=== PATIENT | female | born 1940 | race Caucasian/White ===

== ENCOUNTER 2024-09-25 12:16 | Emergency (ER) | payer BC, SELFPAY ==
[2024-09-25 12:28] VITALS: BP 155/61
--- NOTE | 2024-09-25 13:58 | ED.GENMED ---
History of Present Illness
General
Chief Complaint: Abdominal Symptoms
Time Seen by Provider: 09/25/24 13:07
History of Present Illness
History of Present Illness:
84-year-old female with history of diabetes presents the emergency department for evaluation of generalized abdominal discomfort, loose stools, and nausea ongoing for the past month. She states that she started metformin just prior to the onset of
the symptoms. Has had a hard time eating secondary to symptoms. Symptoms seem to wax and wane throughout the day. No fevers or night sweats
Past History
Past History
ED Past Medical History: Cancer (Uterine cancer)
ED Past Surgical History: Gynecological (Hysterectomy) and Orthopedic (knee surgery)
Social History
Tobacco: Non-smoker
Alcohol: None
Drug: None
Personal:
Living: with family
Employment: Retired
Review of Systems
Review of Systems
Allergies reviewed?: Yes
All Other Systems: ROS reviewed and negative except as documented in HPI and ROS
Phy Exam
Physical Exam
Physical Exam:
GEN: Well appearing, NAD, WDWN
HEENT: Oral mucosa moist, no scleral icterus
Cardiac: Regular rate
Lung: No respiratory distress, no tachypnea
Abdomen: Soft, grossly nontender
MSK: No gross deformity or injuries
Skin: Good color, no pallor or jaundice, no rashes
Neuro: AO x3, moves all extremities freely
Psych: Calm, cooperative
Course
Orders/Labs/Results
Orders:
Orders
09/25/24 14:13
Comprehensive Metabolic Panel Urgent
Hemoglobin A1c [Glycohemoglobin (HgbA1c)] Urgent
Abnormal Lab Results
09/25/24
14:13
Carbon Dioxide 21 L mmol/L
(22-30)
Glucose 143 H mg/dl
(70-99)
Total Bilirubin 1.5 H mg/dl
(0.2-1.3)
AST 75 H U/L
(14-36)
ALT 82 H U/L
(0-35)
Alkaline Phosphatase 284 H U/L
(38-126)
09/25/24 14:13
Vital Signs
Initial and Last Documented VS:
Initial Vital Signs
Temp Pulse Resp BP Pulse Ox
98.1 F 72 20 155/61 97
09/25/24 12:28 09/25/24 12:28 09/25/24 12:28 09/25/24 12:28 09/25/24 12:28
Last Documented Vital Signs
Temp Pulse Resp BP Pulse Ox
98.1 F 72 20 155/61 97
09/25/24 12:28 09/25/24 12:28 09/25/24 12:28 09/25/24 12:28 09/25/24 12:28
MDM/Problems Addressed
MDM/Problems Addressed:
Exam is benign, mild transaminitis noted on labs consistent with adverse effect of metformin. Advised to discontinue metformin, recommend she discuss alternative therapies with her primary care physician. Hemoglobin A1c sent for follow-up purposes
only
*Critical Care Note
Total Time (30-74mins, 75-104mins- exclusive of procedures): Not Applicable
ED Attending Note
-
Portions of this chart may have been created with voice recognition software.� Occasional wrong word or��sound alike� substitutions may have occurred due to the inherent limitations of voice recognition software.
Discharge Plan
Departure
Patient Disposition: Home (Routine Discharge)
Date of Disposition: 09/25/24
Time of Disposition: 15:25
Patient with high blood pressure during this ER visit?: No
Discharge Problem:
Transaminitis, Metformin adverse reaction
Prescriptions:
New
ondansetron 4 mg tablet,disintegrating
4 mg PO TIDPRN PRN (Reason: nausea/vomiting) Qty: 10 0RF
No Action
acetaminophen [Tylenol Extra Strength] 500 MG tablet
500 mg PO Q4HPRN PRN (Reason: mild pain)
aspirin 81 MG tablet,chewable
81 mg PO DAILY Qty: 30 0RF
Referrals:
Eddie Ramos PA [Family Provider] -
Activity Restrictions/Additional Instructions:
Stop your metformin
Discuss an alternative medication therapy with your primary doctor
Symptoms should improve in 1 week
Your liver enzymes should be rechecked in 1-2 weeks
Your A1C should result tomorrow morning; your primary doctor can review this
Interventions
Interventions:
*Risk Screen - Suicide Last Done: 09/25/24 12:37
*General Assessment Last Done: 09/25/24 12:35
*Neglect/Abuse Screening Last Done: 09/25/24 12:35
*ED- Fall Risk Assessment Last Done: 09/25/24 12:35
*ED COVID-19 Vaccine History Last Done: 09/25/24 12:35
NZ-Dwlzgv-Mhmvjkvenz Assessment Last Done: 09/25/24 12:36
Discharge Date and Time
Print Language: KAZAKH
[2024-09-25 14:46] LABS: ALT (SGPT) 82 U/L (0-35); AST (SGOT) 75 U/L (14-36); Albumin 3.5 g/dl (3.5-5.0); Alkaline Phosphatase 284 U/L (38-126); Blood Urea Nitrogen 16 mg/dl (7-17); Calcium 9.3 mg/dl (8.4-10.2); Carbon Dioxide 21 mmol/L (22-30); Chloride 107 mmol/L (98-107); Glucose 143 mg/dl (70-99); Potassium 4.1 mmol/L (3.5-5.1); Sodium 136 mmol/L (135-145); Total Bilirubin 1.5 mg/dl (0.2-1.3); Total Protein 6.6 g/dl (6.3-8.2); eGFR > 60.00
== END 2024-09-25 15:51 | disposition home or self-care (01) ==
LOC: EMR 12:16
PROVIDERS: Physician Assistant; EMERGENCY PHYSICIAN Emergency Medicine; FAMILY PHYSICIAN Physician Assistant
DX: R74.01 Elevation of levels of liver transaminase levels (principal); R10.84 Generalized abdominal pain; T38.3X5A Adverse effect of insulin and oral hypoglycemic [antidiabetic] drugs, initial encounter; Y92.9 Unspecified place or not applicable; E11.9 Type 2 diabetes mellitus without complications; R19.7 Diarrhea, unspecified; Z85.42 Personal history of malignant neoplasm of other parts of uterus; Z90.710 Acquired absence of both cervix and uterus
CPT/HCPCS: 99283; 80053; 83036

== ENCOUNTER 2024-10-09 08:19 | Emergency (ER) | payer BC, SELFPAY ==
[2024-10-09 08:25] VITALS: BP 144/76
[2024-10-09 08:39] VITALS: BP 136/87; BP 142/69; BMI 33.0
[2024-10-09] MEDS: PEPCID 20 MG IV (08:45)
[2024-10-09] MEDS: ZOFRAN 4 MG IV (08:46)
[2024-10-09] MEDS: NSS 500 IV (08:49)
[2024-10-09] MEDS: BENTYL 20 MG IM (08:49)
[2024-10-09 08:54] LABS: % Basophils 0.9 % (0-2); % Eosinophils 1.2 % (0-6); % Immature Granulocytes 0.3 % (0-0.5); % Lymphocytes 11.4 % (20.5-51.1); % Monocytes 9.4 % (1.7-9.3); % Neutrophils 76.8 % (42.2-75.2); Absolute Basophils 0.1 10^3/uL (0-0.2); Absolute Eosinophils 0.1 10^3/uL (0-0.7); Absolute Lymphocytes 0.8 10^3/uL (1.2-3.4); Absolute Monocytes 0.7 10^3/uL (0.1-0.6); Absolute Neutrophils 5.4 10^3/uL (1.4-6.5); Hematocrit 37.3 % (37.0-47.0); Hemoglobin 12.6 g/dL (12.0-16.0); Mean Corp Hgb Conc. 33.8 g/dL (33.0-37.0); Mean Corpuscular Hgb 31.1 pg (27.0-31.0); Mean Corpuscular Volume 92.1 fL (81.0-99.0); Mean Platelet Volume 10.1 fL (7.4-10.4); Nucleated Red Blood Cells % 0 %; Platelet Count 151 10^3/uL (130-400); Red Blood Cell Count 4.05 10^6/uL (4.20-5.40); Red Cell Dist. Width 12.9 % (11.5-14.5)
[2024-10-09 09:00] VITALS: BP 150/60
[2024-10-09 09:18] LABS: ALT (SGPT) 74 U/L (0-35); AST (SGOT) 92 U/L (14-36); Albumin 3.4 g/dl (3.5-5.0); Alkaline Phosphatase 385 U/L (38-126); Blood Urea Nitrogen 18 mg/dl (7-17); Carbon Dioxide 20 mmol/L (22-30); Chloride 104 mmol/L (98-107); Estimated Creatinine Clearance 43 ml/min; Glucose 185 mg/dl (70-99); Lipase 72 U/L (23-300); Potassium 4.1 mmol/L (3.5-5.1); Sodium 135 mmol/L (135-145); Total Protein 6.8 g/dl (6.3-8.2); eGFR 55.55
[2024-10-09 09:58] LABS: Urine Albumin 2+ (Neg - Trace); Urine Bilirubin Negative (Negative); Urine Character Cloudy (Clear); Urine Color Yellow; Urine Glucose Negative (Negative); Urine Ketone 1+ (Negative); Urine Leukocyte Negative (Negative); Urine Nitrite Negative (Negative); Urine Occult Blood 1+ (Negative); Urine Specific Gravity 1.025 (<1.030); Urine Urobilinogen 1+ (Neg - 1+)
--- NOTE | 2024-10-09 10:30 | ED.GENMED ---
History of Present Illness
General
Chief Complaint: Abdominal Pain
Source: patient
Exam Limitations: none
Time Seen by Provider: 10/09/24 08:32
Nursing documentation reviewed up to this point in time: agreed with
History of Present Illness
History of Present Illness:
84-year-old female with past medical history of hypertension presenting to the emergency department today with concerns of abdominal pain nausea over the past 2 weeks. Initially this was presumed to be secondary to the metformin that she started
just prior but claims that the symptoms have been ongoing. She saw her primary care doctor and was told to get an ultrasound. She claims that the pain is diffuse with associated nausea no vomiting no significant changes in bowel movements. No
chest pain shortness of breath. No fevers.
Past History
Past History
ED Past Medical History: Cancer (Uterine cancer)
ED Past Surgical History: Gynecological (Hysterectomy) and Orthopedic (knee surgery)
Social History
Tobacco: Non-smoker
Alcohol: None
Drug: None
Personal:
Living: with family
Employment: Retired
Review of Systems
Review of Systems
Allergies reviewed?: Yes
All Other Systems: ROS reviewed and negative except as documented in HPI and ROS
Phy Exam
Physical Exam
Physical Exam:
GENERAL: Alert , in no apparent distress
EYE: pupils equal and reactive
NECK: Supple, no significant adenopathy.
ENT: o/p clr, mmm.
CARDIAC: Regular rate and rhythm .
LUNGS: Clear breath sounds bilaterally, no acute respiratory distress, no wheezes/rales/rhonchi
ABDOMEN: Soft, without focal tenderness, no r/g, no cvat
NEUROLOGICAL: Alert and oriented, no focal neuro deficits
SKIN: Warm and dry, skin intact.
MUSCULOSKELETAL: No edema, well perfused.
PSYCH: Normal and appropriate interaction.
Course
Orders/Labs/Results
Orders:
Orders
10/09/24 08:42
CT Abd/Pel (IV only)-DH only Urgent
Comment:
Reason For Exam: diffuse abd pain
CA 19-9 [S] Urgent
Complete Blood Count/With Diff Urgent
Comprehensive Metabolic Panel Urgent
Lipase Urgent
Dicyclomine HCl [Bentyl] 20 mg IM NOW STA
Famotidine [Pepcid] 20 mg IV NOW STA
Ondansetron Injectable [Zofran] 4 mg IV NOW STA
10/09/24 08:43
0.9% Sodium Chloride 500 ml [Nss] 500 ml IV BOLUS
10/09/24 09:31
Urinalysis Reflex To Culture Urgent
Date Specimen was Collected: 10/09/24
Time Specimen was Collected: 08:44
Urine Microscopic Reflex Cult Urgent
10/09/24 11:55
Add On- LAB Urgent
Tests Added?: CA 19-9
Abnormal Lab Results
10/09/24 10/09/24
08:42 09:31
RBC 4.05 L 10^6/uL
(4.20-5.40)
MCH 31.1 H pg
(27.0-31.0)
Absolute Lymphs (auto) 0.8 L 10^3/uL
(1.2-3.4)
Absolute Monos (auto) 0.7 H 10^3/uL
(0.1-0.6)
Neutrophils % 76.8 H %
(42.2-75.2)
Lymphocytes % 11.4 L %
(20.5-51.1)
Monocytes % 9.4 H %
(1.7-9.3)
Carbon Dioxide 20 L mmol/L
(22-30)
BUN 18 H mg/dl
(7-17)
Glucose 185 H mg/dl
(70-99)
Total Bilirubin 2.0 H mg/dl
(0.2-1.3)
AST 92 H U/L
(14-36)
ALT 74 H U/L
(0-35)
Alkaline Phosphatase 385 H U/L
(38-126)
Albumin 3.4 L g/dl
(3.5-5.0)
Urine Ketones 1+ A
(Negative)
Ur Occult Blood Reflex 1+ A
(Negative)
Urine Bacteria (Reflex) Few A
(Negative)
Urine Albumin (Reflex) 2+ A
(Neg - Trace)
10/09/24 08:42
10/09/24 08:42
Vital Signs
Initial and Last Documented VS:
Initial Vital Signs
Temp Pulse Resp BP Pulse Ox
98.4 F 104 18 144/76 99
10/09/24 08:25 10/09/24 08:25 10/09/24 08:25 10/09/24 08:25 10/09/24 08:25
Last Documented Vital Signs
Temp Pulse Resp BP Pulse Ox
97.6 F 82 16 150/60 96
10/09/24 08:39 10/09/24 08:39 10/09/24 08:39 10/09/24 09:00 10/09/24 09:15
MDM/Problems Addressed
MDM/Problems Addressed:
84-year-old female presenting to the emergency department today with concerns of ongoing diffuse abdominal pain associated nausea no vomiting. Initially mildly tachycardic but improving without specific treatment. Mildly elevated blood pressure
otherwise vital signs are normal. Afebrile no significant white count. Elevated alk phos and LFTs bilirubin 2.0. Considering her ongoing discomfort plan for CT scan for further assessment. CT scan showing concerning findings for possible
pancreatic adenocarcinoma with local spread and metastasis to the liver. There is surrounding adenopathy as well. Case was discussed with oncology that recommends close outpatient follow-up. Otherwise at this point patient stable for discharge
able to tolerate by mouth without significant pain at this point. Return precautions given.
*Critical Care Note
Total Time (30-74mins, 75-104mins- exclusive of procedures): Not Applicable
ED Attending Note
-
Portions of this chart may have been created with voice recognition software.� Occasional wrong word or��sound alike� substitutions may have occurred due to the inherent limitations of voice recognition software.
Discharge Plan
Departure
Patient Disposition: Home (Routine Discharge)
Date of Disposition: 10/09/24
Time of Disposition: 12:21
Patient with high blood pressure during this ER visit?: No
Condition: Good
Covid-19: Not Applicable
Discharge Problem:
Mass of pancreas, Liver masses
Instructions: Pancreatic Cancer (DC)
Prescriptions:
New
dicyclomine 20 mg tablet
20 mg PO QID PRN (Reason: abdominal pain) Qty: 14 0RF
ondansetron 4 mg tablet,disintegrating
4 mg PO Q6H PRN (Reason: nausea and vomiting) Qty: 7 0RF
famotidine 20 mg tablet
20 mg PO BID Qty: 10 0RF
No Action
acetaminophen [Tylenol Extra Strength] 500 MG tablet
500 mg PO Q4HPRN PRN (Reason: mild pain)
aspirin 81 MG tablet,chewable
81 mg PO DAILY Qty: 30 0RF
ondansetron 4 mg tablet,disintegrating
4 mg PO TIDPRN PRN (Reason: nausea/vomiting) Qty: 10 0RF
Referrals:
Fabian Moe, [Active] - Follow up in 5-7 days
Eddie Ramos PA [Family Provider] -
Activity Restrictions/Additional Instructions:
You came to the emergency department today with concerns of abdominal pain. You are found on CT to have masses of your pancreas and liver. You will need to follow-up very closely with the oncologist. Please call to make an appointment as soon as
possible. Return for any worsening, new or concerning symptoms.
Interventions
Interventions:
*Risk Screen - Suicide Last Done: 10/09/24 08:29
*General Assessment Last Done: 10/09/24 08:29
*Neglect/Abuse Screening Last Done: 10/09/24 08:29
*ED- Fall Risk Assessment Last Done: 10/09/24 08:39
*ED COVID-19 Vaccine History Last Done: 10/09/24 08:39
BS-Kozhdh-Dchzrwoczo Assessment Last Done: 10/09/24 08:39
Discharge Date and Time
Print Language: SLOVAK
[2024-10-09 10:34] LABS: Urine Bacteria Few (Negative); Urine Red Blood Cell 0-2 /HPF (0-2); Urine Squamous Cell >30 /LPF (Few)
--- NOTE | 2024-10-09 10:40 | EDRN ---
the pts approached this RN at the nurses station and asked this RN if the pt could eat or drink yet and per Nacho WATTERS the pt cannot eat or drink yet
--- NOTE | 2024-10-09 11:23 | EDRN ---
the pts approached this RN at the nurses station and stated, 'My is nauseous and she wants something to eat', this RN notified Ed Kenny WATTERS
== END 2024-10-09 12:43 | disposition home or self-care (01) ==
LOC: EMR 08:19
PROVIDERS: Physician Assistant; EMERGENCY PHYSICIAN Emergency Medicine; FAMILY PHYSICIAN Physician Assistant
DX: K86.9 Disease of pancreas, unspecified (principal); R16.0 Hepatomegaly, not elsewhere classified; I10 Essential (primary) hypertension; R18.8 Other ascites; Z85.42 Personal history of malignant neoplasm of other parts of uterus; Z90.710 Acquired absence of both cervix and uterus
CPT/HCPCS: 99284; 96374; 96375; 96372; 96361; 74177; 80053; 81003; 81015; 83690; 85025; 86301; Q9967

== ENCOUNTER 2024-10-14 13:38 | Observation (INO) | payer OTHER, SELFPAY ==
[2024-10-14] VITALS (7 sets, daily range): BP systolic 125–186; BP diastolic 44–104; BMI 32.1; BMI 32.5
--- NOTE | 2024-10-14 09:15 | ED.GENMED ---
History of Present Illness
General
Chief Complaint: Abdominal Pain
Source: patient and records
Exam Limitations: none
Time Seen by Provider: 10/14/24 08:53
Nursing documentation reviewed up to this point in time: agreed with
History of Present Illness
History of Present Illness:
84-year-old female with past medical history of diabetes, hypertension, suspected metastatic pancreatic cancer presents to the emergency room for evaluation of abdominal pain and nausea. This is patient's third emergency room visit in the past
month for the symptoms; initially was seen early September with nausea and abdominal discomfort and it was thought to be related to recently started metformin; metformin was discontinued but symptoms did not improve and so she returned 10/09/2024 at that
time she had a CT that showed findings concerning for pancreatic adenocarcinoma with metastatic lesions in the liver. She was discharged in consultation with oncology with plan for close outpatient follow-up. She has an appointment scheduled
tomorrow with Dr. Oconnor to establish care.
Patient returns to the emergency room today for evaluation of continued abdominal pain and severe nausea. She reports that her abdominal pain has been intermittent. Located upper abdomen somewhat worse on the right and epigastrium. No clear
triggering or relieving factors noted. She describes it as 'an intense stomachache.' She reports intense and distressing associated nausea. Has not had any dry heaving or vomiting. She says she has very poor appetite. She has been taking Zofran
but feels that it does not adequately control her symptoms. She has not been eating very much. She reports mild constipation and took a stool softener for this today. She denies any fevers or chills. She denies any respiratory issues. Denies
any other complaints.
Past History
Past History
ED Past Medical History: Cancer (Uterine cancer)
ED Past Surgical History: Gynecological (Hysterectomy) and Orthopedic (knee surgery)
Social History
Tobacco: Non-smoker
Alcohol: None
Drug: None
Personal:
Living: with family
Employment: Retired
Review of Systems
Review of Systems
All Other Systems: ROS reviewed and negative except as documented in HPI and ROS
Constitutional: Denies fever or chills
Respiratory: Denies cough or trouble breathing
Cardiac: Denies chest pain
ABD/GI: Reports abdominal pain, nausea, vomiting and constipated; Denies diarrhea
: Denies dysuria or flank pain
Musculoskeletal: Denies neck pain or back pain
Neurological: Denies headache
Phy Exam
Physical Exam
Physical Exam:
General: Awake, alert, oriented x3; no acute distress
Head: Normocephalic, atraumatic
Eyes: Conjunctiva normal, sclera anicteric
Throat: Airway intact, handling secretions
Neck: Trachea midline, supple without meningismus
Lungs: Clear to auscultation bilaterally, no wheezing, rales, rhonchi
Heart: Tachycardia with regular rhythm, no murmurs, gallops, or rubs
Abd: Soft, non distended, tender across the upper abdomen
Back: No CVA tenderness
Neuro: No gross deficits
Skin: No jaundice, no rash
Extremities: Warm and well-perfused
Scores
Heart Failure Risk
Heart Failure Risk Score: Not Applicable
Heart Score for Chest Pain Patients
STEMI patient?: Not applicable
Withdrawal Assessment of Alcohol
Withdrawal Assessment Completed?: Not applicable
Course
Orders/Labs/Results
Orders:
Orders
10/14/24 08:53
Electrocardiogram (*1) Urgent
Reason for Study: Abdominal Pain
EKG- Treatment ONCE
10/14/24 09:14
0.9% Sodium Chloride 1000 ml [Nss] 1,000 ml IV BOLUS
Diphenhydramine [Benadryl] 25 mg IV NOW STA
Metoclopramide [Reglan] 10 mg IV NOW STA
10/14/24 09:16
Morphine Sulfate 4 mg IV NOW STA
10/14/24 09:26
Complete Blood Count/With Diff Urgent
10/14/24 09:55
Diphenhydramine [Benadryl] 25 mg IV NOW STA
10/14/24 09:56
Lorazepam [Ativan] 0.5 mg IV NOW STA
10/14/24 10:22
Basic Metabolic Panel Urgent
Lipase Urgent
Abnormal Lab Results
10/14/24 10/14/24
09:26 10:22
RBC 3.96 L 10^6/uL
(4.20-5.40)
MCH 31.3 H pg
(27.0-31.0)
Absolute Lymphs (auto) 0.6 L 10^3/uL
(1.2-3.4)
Absolute Monos (auto) 0.7 H 10^3/uL
(0.1-0.6)
Neutrophils % 81.7 H %
(42.2-75.2)
Lymphocytes % 7.5 L %
(20.5-51.1)
BUN 18 H mg/dl
(7-17)
Glucose 153 H mg/dl
(70-99)
10/14/24 09:26
10/14/24 10:22
Vital Signs
Initial and Last Documented VS:
Initial Vital Signs
Temp Pulse Resp BP Pulse Ox
36.8 C 103 15 130/104 96
10/14/24 08:52 10/14/24 08:52 10/14/24 08:52 10/14/24 08:52 10/14/24 08:52
Last Documented Vital Signs
Temp Pulse Resp BP Pulse Ox
36.8 C 90 23 125/44 92
10/14/24 08:52 10/14/24 12:00 10/14/24 12:00 10/14/24 11:00 10/14/24 12:00
MDM/Problems Addressed
Differential Diagnosis Includes:
Cancer related pain, biliary obstruction
MDM/Problems Addressed:
84-year-old female recently diagnosed with pancreatic mass (concerning for pancreatic adenocarcinoma) and presumed metastatic lesions in the liver returns to the emergency room after the third time complaining of poorly controlled abdominal pain and
nausea. Mildly hypertensive and tachycardic but otherwise normal vitals here. Physical exam as above. Suspect symptoms are likely related to known recently diagnosed pancreatic mass and liver lesions. Will plan to place an IV check labs
including a CBC and a CMP, lipase. Check an EKG for QTc monitoring. Treat with Reglan/Benadryl, morphine, fluids. Reassess after the above. Hold off on repeat CT scan at this point as symptoms have not significantly changed but rather are poorly
controlled and she had a CT scan 5 days ago.
Labs reviewed: CBC unremarkable, CMP no clinically significant abnormalities although LFTs hemolyzed and so we will need to resend. I had a long discussion with the patient and her who is now at bedside. I explained that her symptoms are
likely from her recently diagnosed cancer; she feels her symptoms are very poorly controlled. I explained that hospitalization would not necessarily fix underlying problem and would not provide much more in the way of diagnostics however she feels
that she would benefit from admission for symptom control. Given that this is her third ER visit I do not think this is unreasonable. Case discussed with hospitalist for admission.
*Radiology
Radiology exam reviewed: radiology read reviewed (Reviewed prior CT report)
*Pulse Oximetry
Patient hypoxic: no
*EKG
Interpreted by ED Provider?: Yes
Comparison EKG: changes noted
Heart Rate: 97
Rate: normal
Rhythm: sinus
[place]: left axis deviation
Interval: normal interval
QRS Pattern: low voltage
Ischemia: other (Nonspecific ST changes and T wave flattening when compared to prior)
*Critical Care Note
Total Time (30-74mins, 75-104mins- exclusive of procedures): Not Applicable
Data Reviewed
Review of Other/Old Records Reveals: Labs, Records and Radiology Studies
Source: patient and records
Patient Management
Discussion with other providers: Hospitalist (Discussed with hospitalist)
Escalation/DeEscalation of care consider admission/obs:
Admission indicated
ED Attending Note
-
Portions of this chart may have been created with voice recognition software.� Occasional wrong word or��sound alike� substitutions may have occurred due to the inherent limitations of voice recognition software.
Discharge Plan
Departure
Patient Disposition: Admit
Date of Disposition: 10/14/24
Time of Disposition: 12:44
Admit to doctor: Nash
Presentation/result/management discussed w/ accepting MD/DO: Hospitalist
Discharge Problem:
Nausea & vomiting, Dehydration, Pancreatic cancer
Prescriptions:
No Action
acetaminophen [Tylenol Extra Strength] 500 MG tablet
500 mg PO Q4HPRN PRN (Reason: mild pain)
aspirin 81 MG tablet,chewable
81 mg PO DAILY Qty: 30 0RF
ondansetron 4 mg tablet,disintegrating
4 mg PO TIDPRN PRN (Reason: nausea/vomiting) Qty: 10 0RF
dicyclomine 20 mg tablet
20 mg PO QID PRN (Reason: abdominal pain) Qty: 14 0RF
ondansetron 4 mg tablet,disintegrating
4 mg PO Q6H PRN (Reason: nausea and vomiting) Qty: 7 0RF
famotidine 20 mg tablet
20 mg PO BID Qty: 10 0RF
Referrals:
Eddie Ramos PA [Family Provider] -
Interventions
Interventions:
*Risk Screen - Suicide Last Done: 10/14/24 08:52
*General Assessment Last Done: 10/14/24 08:52
*Neglect/Abuse Screening Last Done: 10/14/24 08:52
*ED- Fall Risk Assessment Last Done: 10/14/24 08:52
*ED COVID-19 Vaccine History Last Done: 10/14/24 08:52
OH-Ejfhyt-Ooxpaedklr Assessment Last Done: 10/14/24 09:56
Discharge Date and Time
Print Language: KUWAITI
[2024-10-14] MEDS: NSS 1000 IV ×2 (09:30→16:45)
[2024-10-14] MEDS: BENADRYL 25 MG IV (09:35)
[2024-10-14] MEDS: REGLAN 10 MG IV ×2 (09:35→21:42)
[2024-10-14 09:42] LABS: % Basophils 0.6 % (0-2); % Eosinophils 0.8 % (0-6); % Immature Granulocytes 0.4 % (0-0.5); % Lymphocytes 7.5 % (20.5-51.1); % Neutrophils 81.7 % (42.2-75.2); Absolute Basophils 0.1 10^3/uL (0-0.2); Absolute Eosinophils 0.1 10^3/uL (0-0.7); Absolute Lymphocytes 0.6 10^3/uL (1.2-3.4); Absolute Monocytes 0.7 10^3/uL (0.1-0.6); Absolute Neutrophils 6.4 10^3/uL (1.4-6.5); Hematocrit 37.6 % (37.0-47.0); Hemoglobin 12.4 g/dL (12.0-16.0); Mean Corpuscular Hgb 31.3 pg (27.0-31.0); Mean Corpuscular Volume 94.9 fL (81.0-99.0); Nucleated Red Blood Cells % 0 %; Platelet Count 146 10^3/uL (130-400); Red Blood Cell Count 3.96 10^6/uL (4.20-5.40); Red Cell Dist. Width 12.9 % (11.5-14.5); White Blood Cell Count 7.9 10^3/uL (4.8-10.8)
[2024-10-14] MEDS: ATIVAN 0.5 MG IV (09:59)
[2024-10-14 10:44] LABS: Blood Urea Nitrogen 18 mg/dl (7-17); Calcium 8.8 mg/dl (8.4-10.2); Carbon Dioxide 22 mmol/L (22-30); Chloride 105 mmol/L (98-107); Estimated Creatinine Clearance 44 ml/min; Glucose 153 mg/dl (70-99); Lipase 56 U/L (23-300); Sodium 137 mmol/L (135-145); eGFR 55.55
--- NOTE | 2024-10-14 13:02 | HPS.HSE ---
Family Physician
-
Family Physician: JANENE Negro
Chief Complaint
-
abdominal pain
History of Present Illness
84-year-old female past medical history of diabetes, hypertension, metastatic pancreatic cancer presents for abdominal pain and nausea. This is her third emergency room visit in the past month for the same symptoms. She was seen in early September
with nausea and abdominal discomfort thought to be secondary to recently started metformin. Metformin was stopped but symptoms did not improved so she returned on 10/09 at which time she had a CAT scan which showed pancreatic adenocarcinoma with
metastatic lesions in the liver. She is discharged and recommend to follow-up with oncology. [facility]
Patient returns again for continued abdominal pain and severe nausea. Abdominal pain has been intermittent and located in the upper abdomen worse on the right and epigastrium. No relieving factors or triggering factors. Denies vomiting or dry
heaving. She has poor appetite. Zofran adequate. She has been constipated and took a stool softener for this today. Denies fevers or chills. Denies shortness of breath.
Denies alcohol or smoking.
Medical History
Past Medical History
Past Medical History: Reports Other (diabetes, hypertension, metastatic pancreatic cancer)
Past Surgical History: Reports None
Social History
Tobacco: Non-smoker
Alcohol: None
Drug: None
Family History
Family History: Not pertinent
Allergies / Home Medications
Allergies reflects when Allergies were last updated in [employer].
Home Medications with original date entered in [employer]
Allergy/Medication List:
Allergies
Allergy/AdvReac Type Severity Reaction Status Date / Time
No Known Allergies Allergy Verified 10/09/24 08:25
Home Medications
ondansetron 4 mg disintegrating tablet 4 mg PO TIDPRN PRN nausea/vomiting #10 tabs 09/25/24
aluminum-mag hydroxide-simethicone 200 mg-200 mg-20 mg/5 mL oral susp 5 ml PO DAILYPRN PRN UPSET STOMACH 10/14/24
ibuprofen 200 mg tablet 200 mg PO Q6H PRN MILD PAIN 10/14/24
lisinopril 10 mg tablet 10 mg PO HS Blood Pressure 10/14/24
Review of Systems
-
History Source: Patient
A 12 point ROS was completed and negative except as noted: Yes
Constitutional: Reports No Symptoms
EENT: Reports No Symptoms
Respiratory: Reports No Symptoms
Cardiac: Reports No Symptoms
Abdomen/GI: Reports See HPI
: Reports No Symptoms
Musculoskeletal: Reports No Symptoms
Skin: Reports No Symptoms
Neurological: Reports No Symptoms
Endocrine: Reports No Symptoms
Hematologic/Lymphatic: Reports No Symptoms
Psych: Reports No Symptoms
Physical Exam
Vital Signs
Vital Signs
Temp Pulse Resp BP Pulse Ox
98.2 F 90 23 125/44 92
10/14/24 08:52 10/14/24 12:00 10/14/24 12:00 10/14/24 11:00 10/14/24 12:00
Physical Exam
General: Well Developed, Well Nourished and No Apparent Distress
HEENT: NormoCephalic, Moist mucous membranes and Atraumatic
Respiratory: Clear
Cardiac: S1/S2 and Regular Rhythm; No Murmur or Rub
GI: Soft, Non Tender, Non Distended and Normal Bowel Sounds; No Organomegaly
Rectal: Deferred by Provider
Musculoskeletal: No Clubbing, No Cyanosis and No Edema
Skin: No Rash
Neuro: Nonfocal/grossly intact
Laboratory Results
-
10/14/24 09:26
10/14/24 10:22
Laboratory Results
Total Bilirubin Cancelled 10/14/24 10:22
AST Cancelled 10/14/24 10:22
ALT Cancelled 10/14/24 10:22
Alkaline Phosphatase Cancelled 10/14/24 10:22
Lipase 56 U/L (23-300) 10/14/24 10:22
Data Reviewed
-
Lab Data: Labs Reviewed by me
Old Records: Reviewed
Impression/Plan
-
IMPRESSION:
PLAN:
# Nausea/abdominal pain secondary to metastatic pancreatic adenocarcinoma with metastases to liver
-CT scan from 10/09 shows pancreatic adenocarcinoma with severe pancreatic atrophy, diffuse distention of the main pancreatic duct with probable compromise of the splenic vein and portal vein. 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
Intrahepatic metastatic lesions. Ascites. Mild portacaval adenopathy.
-Continue IV fluids
-Reglan given, continue as needed
-Continue as needed morphine
-Patient has appointment with oncology tomorrow, can consider consultation if no improvement
-Clear liquid diet for now, advance as tolerated
Type 2 diabetes
-No longer on metformin
Essential hypertension
-Continue lisinopril
DNR/DNI
DVT prophylaxis�heparin
Clear liquid diet
[2024-10-14 16:41] LABS: Glucose - Point of Care 205 mg/dl (70-99)
[2024-10-14 21:21] LABS: Glucose - Point of Care 141 mg/dl (70-99)
[2024-10-14] MEDS: HEPARIN 5000 UNITS SC (21:33)
[2024-10-14] MEDS: ZESTRIL 10 MG PO (21:34)
[2024-10-14] MEDS: MYLICON 80 MG PO (21:55)
[2024-10-15 01:09] LABS: ALT (SGPT) 75 U/L (0-35); AST (SGOT) 90 U/L (14-36); Albumin 2.8 g/dl (3.5-5.0); Alkaline Phosphatase 431 U/L (38-126); Direct Bilirubin 0.5 mg/dl (0.0-0.4); Total Bilirubin 1.6 mg/dl (0.2-1.3); Total Protein 5.9 g/dl (6.3-8.2)
[2024-10-15] MEDS: NSS 1000 IV (03:59)
[2024-10-15 06:00] VITALS: BMI 32.4
[2024-10-15 07:03] VITALS: BP 143/73
--- NOTE | 2024-10-15 08:26 | W.PN.HOSP.TC ---
Addendum entered and electronically signed by Yo Ruiz MD 10/15/24 13:59:
Pancreatic adeno, recent dx, met to liver, tbili <2
-No bx as of yet
-Plan onc visit today at 1415 [facility]
-Agreeable for DC as symptomatology has resolved
-Tolerating diet
-No further vomiting
-Antiemetics prn
-Analgesic prn
I personally called Dr. Huff provided an updated and finding with plan of care.
More than 30 minutes spent in discharge including
Final examination of the patient
Summarizing hospital stay
Instructions for continuing care to all relevant caregivers
Preparation of discharge records, prescriptions, and referral forms
Total time spent (in minutes): 33mins
Original Note:
Today's Communication/Plan
-
Discharge with anti-emetics and pain medication
Assessment / Plan
Assessment / Plan
84-year-old female with recent diagnosis of pancreatic adenocarcinoma presents with persistent nausea and some diarrhea.
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
-CT scan from 10/09 shows pancreatic adenocarcinoma with severe pancreatic atrophy, diffuse distention of the main pancreatic duct with probable compromise of the splenic vein and portal vein. 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
Intrahepatic metastatic lesions. Ascites. Mild portacaval adenopathy.
-IV fluids
-Reglan as needed
-Morphine as needed
-No improvement of symptoms
-Advance diet to diabetic diet per patient request
-Discharge today to get her to to her oncology appointment with Dr. Huff at [place]
#Type 2 diabetes
-Hemoglobin A1c 7.0
-Not on metformin due to side effects
#HTN
-Cont home lisinopril
DNR
DVT heparin
Diabetic diet
Discharge today to discuss further treatment options for pancreatic adenocarcinoma with Dr. Huff. Discussed at length the prognosis of pancreatic cancer and the importance of her keeping this appointment instead of re-scheduling later. They
verbalized understanding and agreed with the plan to discharge.
Anticipated Discharge: Today
Subjective/Interval History
-
Date of Service: October 15, 2024
Objective Data
-
Labs:
Laboratory Results
10/15/24 10/15/24 10/15/24
00:27 07:16 07:17
WBC Pending
Hgb Pending
Hct Pending
Plt Count Pending
Sodium Pending
Potassium Pending
Chloride Pending
Carbon Dioxide Pending
BUN Pending
Creatinine Pending
Glucose Pending
Calcium Pending
Total Bilirubin 1.6 H Pending
AST 90 H Pending
ALT 75 H Pending
Alkaline Phosphatase 431 H Pending
Vital Signs:
Vital Signs
Temp Pulse Resp BP Pulse Ox
98.4 F 83 16 143/73 94
10/15/24 07:03 10/15/24 07:03 10/15/24 07:03 10/15/24 07:03 10/15/24 07:03
I&O
10/14/24 10/15/24 10/16/24
06:59 06:59 06:59
Intake Total 2309 / 0
Balance 2309 / 2309
Review of Systems
-
History Source: Patient
Constitutional: Reports Fatigue and Weakness
EENT: Reports No Symptoms Reported
Respiratory: Reports No Symptoms
Abdomen/GI: Reports Nausea and Diarrhea; Denies Vomiting
Neuro: Reports No Symptoms
Physical Exam
-
General: Conversant and Appears Chronically Ill
HEENT: Normocephalic
Respiratory: Clear to Auscultation
Cardiac: Regular Rhythm and S1/S2
GI: Soft, Nontender, Nondistended and Normal Bowel Sounds
Musculoskeletal: No Edema
Skin: Warm and Dry
Neuro: AO x 3
Psych: Calm
[2024-10-15 08:33] LABS: Glucose - Point of Care 125 mg/dl (70-99)
[2024-10-15] MEDS: HEPARIN 5000 UNITS SC (09:01)
[2024-10-15 09:32] LABS: % Basophils 0.8 % (0-2); % Eosinophils 1.9 % (0-6); % Immature Granulocytes 0.5 % (0-0.5); % Lymphocytes 13.4 % (20.5-51.1); % Monocytes 11.4 % (1.7-9.3); Absolute Basophils 0.1 10^3/uL (0-0.2); Absolute Eosinophils 0.1 10^3/uL (0-0.7); Absolute Lymphocytes 0.8 10^3/uL (1.2-3.4); Absolute Monocytes 0.7 10^3/uL (0.1-0.6); Absolute Neutrophils 4.2 10^3/uL (1.4-6.5); Hematocrit 35.9 % (37.0-47.0); Hemoglobin 12.1 g/dL (12.0-16.0); Mean Corp Hgb Conc. 33.7 g/dL (33.0-37.0); Mean Corpuscular Hgb 31.3 pg (27.0-31.0); Mean Corpuscular Volume 92.8 fL (81.0-99.0); Mean Platelet Volume 11.2 fL (7.4-10.4); Nucleated Red Blood Cells % 0 %; Platelet Count 146 10^3/uL (130-400); Red Blood Cell Count 3.87 10^6/uL (4.20-5.40); Red Cell Dist. Width 13.2 % (11.5-14.5); White Blood Cell Count 5.9 10^3/uL (4.8-10.8)
[2024-10-15 09:47] VITALS: BP 157/81; PULSE 77; PULSE 88; O2SAT 97; O2SAT 98
[2024-10-15 13:35] VITALS: BP 140/98
--- NOTE | 2024-10-15 13:48 | CM ---
Met with patient to obtain information for assessment. Patient stated that she lives with her spouse in a one story home with one step to enter. She described herself as independent with ADLs, personal care, dressing and bathing. 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 Patient has no DME. She has never had VN. She has not been to a SNF.
OBS letter reviewed, signed and in chart.
Spouse will drive home.
Plan: Case management will continue to follow and assist with discharge planning. Home.
--- NOTE | 2024-10-15 18:52 | W.DCSUMMARY ---
Discharge Summary
Discharge Data
Date of Admission: 10/14/24
Date of Discharge: 10/15/24
-
Pending Results: Yes
Additional Pending Results:
Salmonella/shigella culture
Campylobacter culture
Shiga toxin test
Hospital Course
Primary diagnosis
-Pancreatic adenocarcinoma
-Intractable nausea
Secondary diagnosis:
HTN
DMII
Hospital course:
84 y/o female recently diagnosed with pancreatic adenocarcinoma with metastasis to the liver presents to the ED for intractable nausea and abdominal pain. She was provided fluids and anti-emetics.
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 She had an appointment scheduled for this afternoon with Dr. Huff.
Discharge Plan
-
Patient Disposition: Home (Routine Discharge)
Discharge Diagnosis/Procedures: Nausea secondary to pancreatic adenocarcinoma
Condition: Fair
Diet: Diabetic, Carb Controlled
Activity: As tolerated
Driving Restrictions: As prior to admission
Bathing Restrictions: None
Referrals:
Eddie Ramos PA [Family Provider] -
Xin Huff, [Active] - in less than 1 week
Prescriptions:
New
oxycodone-acetaminophen 5-325 mg tablet
1 tab PO Q8H PRN (Reason: Pain) 3 Days Qty: 20 0RF
acetaminophen [Tylenol Extra Strength] 500 mg tablet
500 mg PO Q6H PRN (Reason: Pain) 30 Days Qty: 100 0RF
Rx Instructions:
No more than 4g in a day
Continued
lisinopril 10 mg tablet
10 mg PO HS
ibuprofen 200 mg Tablet
200 mg PO Q6H PRN (Reason: MILD PAIN)
alum-mag hydroxide-simeth 200-200-20 mg/5 mL Suspension
5 ml PO DAILYPRN PRN (Reason: UPSET STOMACH)
ondansetron 4 mg tablet,disintegrating
4 mg PO TIDPRN PRN (Reason: nausea/vomiting) 30 Days Qty: 90 0RF
Discharge Orders:
Discharge Patient (As Directed); Ordered 10/15/24
Ordered By: Kendra Pappas
Discharge Date and Time
Discharge Date/Time: 10/15/24 14:02
Print Language: J[place]
== END 2024-10-15 14:02 | disposition home or self-care (01) ==
LOC: 3 WEST ACU 13:38
PROVIDERS: ADMITTING PHYSICIAN Hospitalist; ATTENDING PHYSICIAN Hospitalist; EMERGENCY PHYSICIAN Emergency Medicine; FAMILY PHYSICIAN Physician Assistant
DX: G89.3 Neoplasm related pain (acute) (chronic) (principal); C25.3 Malignant neoplasm of pancreatic duct; R10.9 Unspecified abdominal pain; I10 Essential (primary) hypertension; E11.9 Type 2 diabetes mellitus without complications; R11.2 Nausea with vomiting, unspecified; C78.7 Secondary malignant neoplasm of liver and intrahepatic bile duct; R94.31 Abnormal electrocardiogram [ECG] [EKG]; K86.89 Other specified diseases of pancreas; R63.0 Anorexia; K59.00 Constipation, unspecified; R00.0 Tachycardia, unspecified; E86.0 Dehydration; R59.9 Enlarged lymph nodes, unspecified; R18.8 Other ascites; Z66 Do not resuscitate; Z85.42 Personal history of malignant neoplasm of other parts of uterus; Z90.710 Acquired absence of both cervix and uterus
CPT/HCPCS: 80048; 80076; 82962; 83690; 85025; 87045; 87046; 87324; 87427; 87449; 93005; 96361; 96374; 96375; 97162; 97166; 99285

== ENCOUNTER 2024-10-16 16:29 | Emergency (ER) | payer OTHER, SELFPAY ==
[2024-10-16 16:40] VITALS: BP 139/77
[2024-10-16 17:12] LABS: % Eosinophils 1.9 % (0-6); % Immature Granulocytes 0.2 % (0-0.5); % Monocytes 9.7 % (1.7-9.3); % Neutrophils 76.2 % (42.2-75.2); Absolute Basophils 0.1 10^3/uL (0-0.2); Absolute Eosinophils 0.2 10^3/uL (0-0.7); Absolute Monocytes 0.8 10^3/uL (0.1-0.6); Absolute Neutrophils 6.6 10^3/uL (1.4-6.5); Hematocrit 35.9 % (37.0-47.0); Hemoglobin 12.4 g/dL (12.0-16.0); Mean Corp Hgb Conc. 34.5 g/dL (33.0-37.0); Mean Corpuscular Hgb 31.6 pg (27.0-31.0); Mean Corpuscular Volume 91.3 fL (81.0-99.0); Mean Platelet Volume 10.1 fL (7.4-10.4); Nucleated Red Blood Cells % 0 %; Platelet Count 179 10^3/uL (130-400); Red Blood Cell Count 3.93 10^6/uL (4.20-5.40); White Blood Cell Count 8.6 10^3/uL (4.8-10.8)
[2024-10-16 17:27] LABS: ALT (SGPT) 84 U/L (0-35); AST (SGOT) 105 U/L (14-36); Albumin 3.6 g/dl (3.5-5.0); Alkaline Phosphatase 544 U/L (38-126); Blood Urea Nitrogen 16 mg/dl (7-17); Calcium 9.2 mg/dl (8.4-10.2); Carbon Dioxide 18 mmol/L (22-30); Chloride 108 mmol/L (98-107); Glucose 151 mg/dl (70-99); Potassium 4.1 mmol/L (3.5-5.1); Sodium 139 mmol/L (135-145); eGFR > 60.00
[2024-10-16 17:28] LABS: Lipase 56 U/L (23-300)
[2024-10-16 17:35] VITALS: BP 145/83
[2024-10-16 17:35] LABS: NT-proBNP 805 pg/ml
--- NOTE | 2024-10-16 17:35 | ED.GENMED ---
History of Present Illness
General
Chief Complaint: Weakness
Source: patient
Exam Limitations: none
Time Seen by Provider: 10/16/24 17:24
Nursing documentation reviewed up to this point in time: agreed with
History of Present Illness
History of Present Illness:
Patient to ED wt complaint of worsening SNIDER. SHe was recently diagnosed with pancreatic CA with liver mets. She was admitted here 2 days ago for her abdominal pain, discharge home yesterday with outpatient oncology follow up. SHe was seen by
Dr. Huff today and given rx for chest CT to r/o PE but patient was demonstrating worsening dyspnea so she was sent to ED. Patient states she feels ok when resting but becomes dyspneic with minimal movement. To ED accompanied by spouse.
Past History
Past History
ED Past Medical History: Cancer (Uterine cancer) and HTN
ED Past Surgical History: Gynecological (Hysterectomy) and Orthopedic (knee surgery)
Social History
Tobacco: Non-smoker
Alcohol: None
Drug: None
Personal:
Living: with family
Employment: Retired
Review of Systems
Review of Systems
Allergies reviewed?: Yes
All Other Systems: ROS reviewed and negative except as documented in HPI and ROS
Constitutional: Reports no symptoms
Respiratory: Reports trouble breathing
Cardiac: Reports no symptoms
ABD/GI: Reports nausea
: Reports no symptoms
Musculoskeletal: Reports no symptoms
Skin: Reports no symptoms
Neurological: Reports no symptoms
Psychiatric: Reports no symptoms
Phy Exam
General Physical Exam
General Presentation: well appearing and mild distress
General age: appears stated age
General Skin: warm and dry
General Habitus: normal
General Mental: alert
Cardiovascular Exam
Cardiovascular Exam: regular rate/rhythm and no edema
Pulmonary Exam
Pulmonary Exam: lungs clear, no respiratory distress and chest non tender
Musculoskeletal Exam
Musculoskeletal Exam: full ROM and neuro vasc intact
Skin Exam
Skin Exam: normal color, warm/dry and no rash
Psychiatric Exam
Psychiatric Exam: normal mood/affect
Course
Orders/Labs/Results
Orders:
Orders
10/16/24 16:42
Electrocardiogram (*1) Urgent
Reason for Study: Shortness of Breath
10/16/24 16:43
EKG- Treatment ONCE
10/16/24 16:57
BNP [NT-proBNP] Urgent
Complete Blood Count/With Diff Urgent
Comprehensive Metabolic Panel Urgent
Lipase Urgent
10/16/24 17:32
CT Chest PE Study Urgent
Comment:
Reason For Exam: SOB, pancreatic/liver CA
10/16/24 19:29
Lorazepam [Ativan] 0.25 mg IV NOW STA
10/16/24 20:56
Loperamide [Imodium] 2 mg PO NOW STA
Abnormal Lab Results
10/16/24
16:57
RBC 3.93 L 10^6/uL
(4.20-5.40)
Hct 35.9 L %
(37.0-47.0)
MCH 31.6 H pg
(27.0-31.0)
Absolute Neuts (auto) 6.6 H 10^3/uL
(1.4-6.5)
Absolute Lymphs (auto) 1.0 L 10^3/uL
(1.2-3.4)
Absolute Monos (auto) 0.8 H 10^3/uL
(0.1-0.6)
Neutrophils % 76.2 H %
(42.2-75.2)
Lymphocytes % 11.0 L %
(20.5-51.1)
Monocytes % 9.7 H %
(1.7-9.3)
Chloride 108 H mmol/L
(98-107)
Carbon Dioxide 18 L mmol/L
(22-30)
Glucose 151 H mg/dl
(70-99)
Total Bilirubin 2.0 H mg/dl
(0.2-1.3)
AST 105 H U/L
(14-36)
ALT 84 H U/L
(0-35)
Alkaline Phosphatase 544 H U/L
(38-126)
10/16/24 16:57
10/16/24 16:57
Vital Signs
Initial and Last Documented VS:
Initial Vital Signs
Temp Pulse Resp BP Pulse Ox
98.6 F 111 18 139/77 98
10/16/24 16:40 10/16/24 16:40 10/16/24 16:40 10/16/24 16:40 10/16/24 16:40
Last Documented Vital Signs
Temp Pulse Resp BP Pulse Ox
98.6 F 104 15 145/83 95
10/16/24 16:40 10/16/24 20:45 10/16/24 20:45 10/16/24 17:35 10/16/24 20:45
*Radiology
Radiology exam reviewed: radiology read reviewed
*Pulse Oximetry
Patient hypoxic: no
*Critical Care Note
Total Time (30-74mins, 75-104mins- exclusive of procedures): Not Applicable
Update Note
Update Note:
Patient to ED with complaint of worsening dyspnea. Sent by oncology for chest CT to r/o PE. CT completed. No PE, no evidence of metastatic dx. Pulse ox remains 95% with ambulation, 97% with rest. SHe appears very anxious. Given 0.25mg ativan
in dept and she improved greatly. Breathing much more comfortably. SHe notes improvement overall. WIll discharge home with limited rx for ativan prn and she will follow upwith oncologist next week as scheduled.
ED Attending Note
-
Portions of this chart may have been created with voice recognition software.� Occasional wrong word or��sound alike� substitutions may have occurred due to the inherent limitations of voice recognition software.
Discharge Plan
Departure
Patient Disposition: Home (Routine Discharge)
Date of Disposition: 10/16/24
Time of Disposition: 20:29
Patient with high blood pressure during this ER visit?: No
Condition: Good
Covid-19: Not Applicable
Discharge Problem:
Dyspnea, Anxiety
Instructions: Anxiety in adults - ED discharge instructions, Shortness of breath in adults - ED discharge instructions
Prescriptions:
New
lorazepam [Ativan] 0.5 mg tablet
0.5 mg PO BID PRN (Reason: anxiety) Qty: 10 0RF
No Action
lisinopril 10 mg tablet
10 mg PO HS
ibuprofen 200 mg Tablet
200 mg PO Q6H PRN (Reason: MILD PAIN)
alum-mag hydroxide-simeth 200-200-20 mg/5 mL Suspension
5 ml PO DAILYPRN PRN (Reason: UPSET STOMACH)
ondansetron 4 mg tablet,disintegrating
4 mg PO TIDPRN PRN (Reason: nausea/vomiting) 30 Days Qty: 90 0RF
oxycodone-acetaminophen 5-325 mg tablet
1 tab PO Q8H PRN (Reason: Pain) 3 Days Qty: 20 0RF
acetaminophen [Tylenol Extra Strength] 500 mg tablet
500 mg PO Q6H PRN (Reason: Pain) 30 Days Qty: 100 0RF
Rx Instructions:
No more than 4g in a day
Referrals:
Eddie Ramos PA [Family Provider] - Tomorrow
Interventions
Interventions:
*Risk Screen - Suicide Last Done: 10/16/24 16:40
*General Assessment Last Done: 10/16/24 16:40
*Neglect/Abuse Screening Last Done: 10/16/24 16:40
*ED- Fall Risk Assessment Last Done: 10/16/24 17:41
*ED COVID-19 Vaccine History Last Done: 10/16/24 16:40
*Nursing Disposition Last Done: 10/16/24 21:42
ED- Cardiac Assessment Last Done: 10/16/24 17:41
ED- Neurological Assessment Last Done: 10/16/24 17:41
ED- Pulmonary Assessment Last Done: 10/16/24 17:41
Discharge Date and Time
Discharge Date/Time: 10/16/24 21:43
Print Language: MOHAWK
[2024-10-16] MEDS: ATIVAN 0.25 MG IV (19:43)
[2024-10-16] MEDS: IMODIUM 2 MG PO (21:15)
== END 2024-10-16 21:43 | disposition home or self-care (01) ==
LOC: EMR 16:29
PROVIDERS: EMERGENCY PHYSICIAN Student in an Organized Health Care Education/Training Program; FAMILY PHYSICIAN Physician Assistant
DX: R06.00 Dyspnea, unspecified (principal); F41.9 Anxiety disorder, unspecified; C25.9 Malignant neoplasm of pancreas, unspecified; C78.7 Secondary malignant neoplasm of liver and intrahepatic bile duct; I10 Essential (primary) hypertension; Z85.42 Personal history of malignant neoplasm of other parts of uterus; Z90.710 Acquired absence of both cervix and uterus
CPT/HCPCS: 99284; 96374; 71275; 80053; 83690; 83880; 85025; 93005; Q9967

== ENCOUNTER 2024-10-21 15:35 | Inpatient (IN) | payer OTHER, SELFPAY ==
[2024-10-21 11:01] VITALS: BP 164/99
--- NOTE | 2024-10-21 11:14 | ED.GENMED ---
History of Present Illness
<Emma Christianson PA-C - Last Filed: 10/21/24 16:37>
General
Chief Complaint: Weakness
Source: patient and records
Exam Limitations: none
Time Seen by Provider: 10/21/24 11:07
History of Present Illness
History of Present Illness:
84yoF with a history of recently diagnosed pancreatic cancer, hypertension, and type 2 diabetes presenting for evaluation of generalized weakness. Patient has been feeling nauseous for several months. CT abdomen on 10/09/24 showed evidence of
pancreatic cancer with liver metastases. She was admitted from 10/14/2024 until 10/15/2024 for intractable nausea. Patient was seen by oncology as an outpatient last week. She is not receiving any cancer treatment at this time. Patient has been
increasingly weak at home. She reports ongoing nausea but denies any vomiting. She is eating and drinking very little and feels that she is dehydrated. Urine output is reported to be normal. She also reports feeling short of breath. She was
seen in the ED on 10/16/2024 for dyspnea and CTA chest was negative for PE. She denies any fevers, diarrhea, chest pain.
Past History
<Emma Christianson PA-C - Last Filed: 10/21/24 16:37>
Past History
ED Past Medical History: Cancer (Uterine cancer) and HTN
ED Past Surgical History: Gynecological (Hysterectomy) and Orthopedic (knee surgery)
Social History
Tobacco: Non-smoker
Alcohol: None
Drug: None
Personal:
Living: with family
Employment: Retired
Phy Exam
<Emma Christianson PA-C - Last Filed: 10/21/24 16:37>
Physical Exam
Physical Exam:
Chronically ill appearing and appears fatigued, non-toxic
General Physical Exam
General Presentation: no apparent distress
General Skin: warm and dry
General Habitus: elderly
General Mental: alert
ENT Exam
ENT Exam: normocephalic
Cardiovascular Exam
Cardiovascular Exam: tachycardia
Pulmonary Exam
Pulmonary Exam: lungs clear, no respiratory distress, no rales, no crackles and no rhonchi
Gastrointestinal Exam
Gastrointestinal Exam: non tender, soft and non distended
Neurological Exam
Neurological Exam: alert
Deya Coma Scale
Eye Opening: Spontaneous
Verbal Response: Oriented
Motor Response: Obeys Commands
GCS Total Score: 15
Skin Exam
Skin Exam: normal color and warm/dry
Psychiatric Exam
Psychiatric Exam: normal mood/affect
<Maria T Galicia MD - Last Filed: 10/21/24 13:50>
Deya Coma Scale
GCS Total Score: 15
Course
<Emma Christianson PA-C - Last Filed: 10/21/24 16:37>
Orders/Labs/Results
Orders:
Orders
10/21/24 11:16
Cardiac Monitoring- Treatment ONCE
0.9% Sodium Chloride 1000 ml [Nss] 1,000 ml IV BOLUS
Prochlorperazine [Compazine] 10 mg IV NOW STA
10/21/24 11:17
Electrocardiogram (*1) Urgent
Reason for Study: Fatigue / Weakness
EKG- Treatment ONCE
CR Chest - 2 Views Urgent
Comment:
Reason For Exam: SOB
10/21/24 11:42
Complete Blood Count/With Diff Urgent
10/21/24 13:07
Comprehensive Metabolic Panel Urgent
Lipase Urgent
Magnesium Urgent
Troponin I Urgent
10/21/24 14:38
Admit/Transfer Patient As Directed
Co-Sign Provider:
Level of Care: Inpatient admission
Assign to:: Medical/Surgical
Physician / Group: Htay
Diagnosis: Metastatic Pancreatic Cancer
Reason for Hospitalization: Paracentesis, Hospice consult
Expected length of stay greater than two midnights?: Yes
ELOS- Estimated Length of Stay in days: 3
I certify the patient meets the requirements for IP care: Yes
Ondansetron Injectable [Zofran] 4 mg IV NOW STA
10/21/24 14:39
PRN Pain Medication Management As Directed
May give lesser potent ordered pain med per pt: Yes
preference::
Protocol:: Medication orders for pain may be administered in a
manner that supports deferring to patient preference
when the pt is:
- Requesting an ordered lesser potent pain medication.
Least to most potent pain medications are defined
as: acetaminophen < NSAID < tramadol < opioids
(morphine, oxycodone, hydromorphone).
- Requesting a lesser dose of the same medication IF
ORDERED.
- Requesting a less intrusive route of administration
if both routes are prescribed by the provider (PO <
IV).
10/21/24 14:41
[facility] CONSULT Routine
Consulting Provider: Phillip Dawson
Was physician already notified: Yes
Reason for Consult/Procedure: Paacentesis
Acknowledgement that appropriate orders are entered: Yes
[facility] Cytology Routine
Date Specimen was Collected: 10/21/24
Time Specimen was Collected: 16:13
Source: Peritoneal Fluid
List other source: LLQ
Clinical Impression: pancreatic cancer
10/21/24 15:12
Code Status As Directed
Resuscitation Status: Do not resuscitate
Reached after discussion with pt or family/Healthcare POA: Yes
DNR Bracelet Application ONCE
Abnormal Lab Results
10/21/24 10/21/24
11:42 13:07
RBC 4.19 L 10^6/uL
(4.20-5.40)
MCH 31.3 H pg
(27.0-31.0)
Absolute Neuts (auto) 7.0 H 10^3/uL
(1.4-6.5)
Absolute Lymphs (auto) 0.7 L 10^3/uL
(1.2-3.4)
Absolute Monos (auto) 0.8 H 10^3/uL
(0.1-0.6)
Neutrophils % 81.3 H %
(42.2-75.2)
Lymphocytes % 8.0 L %
(20.5-51.1)
Chloride 108 H mmol/L
(98-107)
Carbon Dioxide 21 L mmol/L
(22-30)
Glucose 133 H mg/dl
(70-99)
Total Bilirubin 2.2 H mg/dl
(0.2-1.3)
AST 142 H U/L
(14-36)
ALT 98 H U/L
(0-35)
Alkaline Phosphatase 533 H U/L
(38-126)
Troponin I 0.086 H* ng/ml
Albumin 3.0 L g/dl
(3.5-5.0)
10/21/24 11:42
10/21/24 13:07
Vital Signs
Initial and Last Documented VS:
Initial Vital Signs
Temp Pulse Resp BP Pulse Ox
99.7 F 117 18 164/99 97
10/21/24 11:01 10/21/24 11:01 10/21/24 11:01 10/21/24 11:01 10/21/24 11:01
Last Documented Vital Signs
Temp Pulse Resp BP Pulse Ox
99.7 F 101 25 164/99 92
10/21/24 11:01 10/21/24 15:15 10/21/24 15:15 10/21/24 11:01 10/21/24 15:15
<Maria T Galicia MD - Last Filed: 10/21/24 13:50>
Orders/Labs/Results
Orders:
Orders
10/21/24 11:16
Cardiac Monitoring- Treatment ONCE
0.9% Sodium Chloride 1000 ml [Nss] 1,000 ml IV BOLUS
Prochlorperazine [Compazine] 10 mg IV NOW STA
10/21/24 11:17
Electrocardiogram (*1) Urgent
Reason for Study: Fatigue / Weakness
EKG- Treatment ONCE
CR Chest - 2 Views Urgent
Comment:
Reason For Exam: SOB
10/21/24 11:42
Complete Blood Count/With Diff Urgent
10/21/24 13:07
Comprehensive Metabolic Panel Urgent
Lipase Urgent
Magnesium Urgent
Troponin I Urgent
10/21/24 14:38
Admit/Transfer Patient As Directed
Co-Sign Provider:
Level of Care: Inpatient admission
Assign to:: Medical/Surgical
Physician / Group: Htay
Diagnosis: Metastatic Pancreatic Cancer
Reason for Hospitalization: Paracentesis, Hospice consult
Expected length of stay greater than two midnights?: Yes
ELOS- Estimated Length of Stay in days: 3
I certify the patient meets the requirements for IP care: Yes
Ondansetron Injectable [Zofran] 4 mg IV NOW STA
10/21/24 14:39
PRN Pain Medication Management As Directed
May give lesser potent ordered pain med per pt: Yes
preference::
Protocol:: Medication orders for pain may be administered in a
manner that supports deferring to patient preference
when the pt is:
- Requesting an ordered lesser potent pain medication.
Least to most potent pain medications are defined
as: acetaminophen < NSAID < tramadol < opioids
(morphine, oxycodone, hydromorphone).
- Requesting a lesser dose of the same medication IF
ORDERED.
- Requesting a less intrusive route of administration
if both routes are prescribed by the provider (PO <
IV).
10/21/24 14:41
[facility] CONSULT Routine
Consulting Provider: Phillip Dawson
Was physician already notified: Yes
Reason for Consult/Procedure: Paacentesis
Acknowledgement that appropriate orders are entered: Yes
[facility] Cytology Routine
Date Specimen was Collected: 10/21/24
Time Specimen was Collected: 16:13
Source: Peritoneal Fluid
List other source: LLQ
Clinical Impression: pancreatic cancer
10/21/24 15:12
Code Status As Directed
Resuscitation Status: Do not resuscitate
Reached after discussion with pt or family/Healthcare POA: Yes
DNR Bracelet Application ONCE
Abnormal Lab Results
10/21/24 10/21/24
11:42 13:07
RBC 4.19 L 10^6/uL
(4.20-5.40)
MCH 31.3 H pg
(27.0-31.0)
Absolute Neuts (auto) 7.0 H 10^3/uL
(1.4-6.5)
Absolute Lymphs (auto) 0.7 L 10^3/uL
(1.2-3.4)
Absolute Monos (auto) 0.8 H 10^3/uL
(0.1-0.6)
Neutrophils % 81.3 H %
(42.2-75.2)
Lymphocytes % 8.0 L %
(20.5-51.1)
Chloride 108 H mmol/L
(98-107)
Carbon Dioxide 21 L mmol/L
(22-30)
Glucose 133 H mg/dl
(70-99)
Total Bilirubin 2.2 H mg/dl
(0.2-1.3)
AST 142 H U/L
(14-36)
ALT 98 H U/L
(0-35)
Alkaline Phosphatase 533 H U/L
(38-126)
Troponin I 0.086 H* ng/ml
Albumin 3.0 L g/dl
(3.5-5.0)
10/21/24 11:42
10/21/24 13:07
Vital Signs
Initial and Last Documented VS:
Initial Vital Signs
Temp Pulse Resp BP Pulse Ox
99.7 F 117 18 164/99 97
10/21/24 11:01 10/21/24 11:01 10/21/24 11:01 10/21/24 11:01 10/21/24 11:01
Last Documented Vital Signs
Temp Pulse Resp BP Pulse Ox
99.7 F 101 25 164/99 92
10/21/24 11:01 10/21/24 15:15 10/21/24 15:15 10/21/24 11:01 10/21/24 15:15
<Emma Christianson PA-C - Last Filed: 10/21/24 16:37>
MDM/Problems Addressed
Differential Diagnosis Includes:
84yoF here with nausea, weakness, and feeling dehydrated. Also c/o SOB. Hx of recently diagnosed pancreatic cancer. HR 117 in triage. Remainder of vitals stable. She appears fatigued but is non-toxic. Differential diagnosis includes but is not
limited to: nausea related to malignancy, failure to thrive, dehydration, AARON
Initial ED plan: Check cardiac labs, magnesium, EKG, and CXR. IV Compazine and fluid bolus for symptoms.
<Emma Christianson PA-C - Last Filed: 10/21/24 16:37>
*EKG
Interpreted by ED Provider?: Yes
EKG Intrepretation Date: 10/21/24
Heart Rate: 87
Rate: normal
Rhythm: sinus
[place]: left axis deviation
Interval: normal interval
QRS Pattern: normal QRS
Ischemia: T-wave inversion
*Critical Care Note
Total Time (30-74mins, 75-104mins- exclusive of procedures): Not Applicable
<Emma Christianson PA-C - Last Filed: 10/21/24 16:37>
Update Note
Update Note:
Labs reveal a mildly elevated troponin of 0.08. There is nonspecific T wave inversions on EKG, no ST changes noted. Patient denies any chest pain. She does have some nausea and upper abdominal discomfort which is likely from her known pancreatic
mass. Patient without any significant improvement after Compazine. She was admitted for further evaluation.
ED Attending Note
<Emma Christianson PA-C - Last Filed: 10/21/24 16:37>
-
Portions of this chart may have been created with voice recognition software.� Occasional wrong word or��sound alike� substitutions may have occurred due to the inherent limitations of voice recognition software.
<Maria T Galicia MD - Last Filed: 10/21/24 13:50>
ED Attending Note
Patient seen and examined by attending physician: Yes
I performed the substantive portion of visit, reviewed & personally made and approve the management plan that is documented in note by myself or XIOMARA.: Yes
ED Attending Note:
Patient appears nontoxic. She adamantly denies shortness of breath and chest pain. Patient describes uneasiness of the abdomen and nausea. She describes generalized weakness. On exam she has diminished breath sounds but no crackles of her lungs.
Her abdomen is soft and mildly distended.
Discharge Plan
Departure
Patient Disposition: Admit
Date of Disposition: 10/21/24
Time of Disposition: 13:52
Presentation/result/management discussed w/ accepting MD/DO: Hospitalist
Discharge Problem:
Nausea, Elevated troponin
Interventions
Interventions:
*Risk Screen - Suicide Last Done: 10/21/24 11:03
*General Assessment Last Done: 10/21/24 11:03
*Neglect/Abuse Screening Last Done: 10/21/24 11:03
*ED- Fall Risk Assessment Last Done: 10/21/24 11:15
*ED COVID-19 Vaccine History Last Done: 10/21/24 11:03
*Nursing Disposition Last Done: 10/21/24 16:19
ED- Cardiac Assessment Last Done: 10/21/24 11:15
ED- Neurological Assessment Last Done: 10/21/24 11:15
ED- Pulmonary Assessment Last Done: 10/21/24 11:15
Discharge Date and Time
Discharge Date/Time: 10/21/24 16:19
[2024-10-21 11:53] LABS: % Basophils 0.8 % (0-2); % Immature Granulocytes 0.2 % (0-0.5); % Monocytes 8.7 % (1.7-9.3); % Neutrophils 81.3 % (42.2-75.2); Absolute Basophils 0.1 10^3/uL (0-0.2); Absolute Eosinophils 0.1 10^3/uL (0-0.7); Absolute Lymphocytes 0.7 10^3/uL (1.2-3.4); Absolute Monocytes 0.8 10^3/uL (0.1-0.6); Hemoglobin 13.1 g/dL (12.0-16.0); Mean Corp Hgb Conc. 34.5 g/dL (33.0-37.0); Mean Corpuscular Hgb 31.3 pg (27.0-31.0); Mean Corpuscular Volume 90.7 fL (81.0-99.0); Nucleated Red Blood Cells % 0 %; Platelet Count 152 10^3/uL (130-400); Red Blood Cell Count 4.19 10^6/uL (4.20-5.40); Red Cell Dist. Width 13.5 % (11.5-14.5); White Blood Cell Count 8.6 10^3/uL (4.8-10.8)
[2024-10-21] MEDS: NSS 1000 IV ×2 (12:14→17:17)
[2024-10-21] MEDS: COMPAZINE 10 MG IV (12:15)
[2024-10-21 13:29] LABS: ALT (SGPT) 98 U/L (0-35); AST (SGOT) 142 U/L (14-36); Alkaline Phosphatase 533 U/L (38-126); Blood Urea Nitrogen 17 mg/dl (7-17); Calcium 8.5 mg/dl (8.4-10.2); Carbon Dioxide 21 mmol/L (22-30); Chloride 108 mmol/L (98-107); Glucose 133 mg/dl (70-99); Lipase 36 U/L (23-300); Magnesium 1.6 mg/dl (1.6-2.3); Potassium 4.5 mmol/L (3.5-5.1); Sodium 137 mmol/L (135-145); Total Bilirubin 2.2 mg/dl (0.2-1.3); Total Protein 6.4 g/dl (6.3-8.2); eGFR > 60.00
[2024-10-21 13:40] LABS: Troponin I 0.086 ng/ml
--- NOTE | 2024-10-21 14:12 | HPS.HSE ---
Family Physician
-
Family Physician: JANENE Negro
Chief Complaint
-
Weakness, Nausea and Abdominal Discomfort
History of Present Illness
Patient is an 84 y/o female past medical history of hypertension, diabetes and recently diagnosed metastatic pancreatic cancer who presents with weakness, nausea and abdominal discomfort. Patient reports since discharge from the hosptial on September
she has not been doing well at home. She reports persistent nausea and very poor appetite. She reports increasing abdominal distention and abdominal discomfort. She reports constipation with some improvement after using a stool softener but
still feels abdomen in distended. She denies fevers, sweats or chills. She denies chest pains, palpitations or shortness of breath.
Medical History
Past Medical History
Past Medical History: Reports Other
Additional Past Medical History:
Metastatic Pancreatic Cancer
Diabetes Mellitus
Essential Hypertension
Uterine Cancer
Past Surgical History: Reports Other
Additional Past Surgical History:
Hysterectomy
Left Knee Replacement
Social History
Tobacco: Non-smoker
Alcohol: None
Drug: None
Personal:
Family History
Family History: Not pertinent
Allergies / Home Medications
Allergies reflects when Allergies were last updated in [employer].
Home Medications with original date entered in [employer]
Allergy/Medication List:
Allergies
Allergy/AdvReac Type Severity Reaction Status Date / Time
No Known Allergies Allergy Verified 10/21/24 11:02
Home Medications
lisinopril 10 mg tablet 10 mg PO HS Blood Pressure 10/14/24
Review of Systems
-
A 12 point ROS was completed and negative except as noted: Yes
Constitutional: Denies Fever
Respiratory: Denies Cough or Trouble Breathing
Cardiac: Denies Chest Pain or Palpitations
Abdomen/GI: Reports See HPI
Physical Exam
Vital Signs
Vital Signs
Temp Pulse Resp BP Pulse Ox
99.7 F 88 23 164/99 94
10/21/24 11:01 10/21/24 13:45 10/21/24 13:45 10/21/24 11:01 10/21/24 13:45
Physical Exam
General: Comfortable and Conversant
HEENT: Anicteric and Moist mucous membranes
Respiratory: Clear and Non Labored Respirations
Cardiac: S1/S2 and Regular Rhythm
GI: Soft and Distended (Slightly with small fluid wave)
Rectal: Deferred by Provider
Musculoskeletal: No Clubbing and No Cyanosis
Skin: Warm and Dry
Neuro: Awake, Alert, Oriented and Nonfocal/grossly intact
Psych: Calm and Intact Judgment/Insight
Laboratory Results
-
10/21/24 11:42
10/21/24 13:07
Laboratory Results
Total Bilirubin 2.2 mg/dl (0.2-1.3) H 10/21/24 13:07
AST 142 U/L (14-36) H 10/21/24 13:07
ALT 98 U/L (0-35) H 10/21/24 13:07
Alkaline Phosphatase 533 U/L (38-126) H 10/21/24 13:07
Troponin I 0.086 ng/ml H* 10/21/24 13:07
Lipase 36 U/L (23-300) 10/21/24 13:07
Data Reviewed
-
Lab Data: Labs Reviewed by me
Old Records: Reviewed
Impression/Plan
-
Weakness / Nausea suspect secondary to Metastatic Pancreatic Cancer
-Reviewed with patient. She is clear that she does not want to pursue further work-up with biopsy as she would not want to receive treatment with chemotherapy
-Patient's expresses goal of care as comfort - She is agreeable to hospice consult however appears more reluctant
-Consult Oncology and Case Management to discuss with patient/ further
-Consult Interventional Radiology for possible palliative paracentesis as prior imaging indicated mild abdominal and moderate pelvic ascites
-Continue alternating doses of Zofran and Compazine for nausea management
Elevated Troponin
-Patient chest pain free at present time
-Given patient's metastatic cancer diagnosis and goal for comfort would not pursue further unless patient develops worsening symptoms
-Obtain repeat ECG prn chest pain
Essential Hypertension
-Continue lisinopril with hold parameters
Diabetes Mellitus
-HgbA1c 7.0 in September 2024
Hx Uterine Cancer s/p Hysterectomy, Chemotherapy and Radiation
DVT proph: SCDs
Code Status: DNR
--- NOTE | 2024-10-21 14:51 | W.PN.UPDATE ---
Update Note
Progress Note Update
This note serves as an addendum to the H&P by fermentation engineer XIOMARA Sherry JEROME
HPI
84F Cognitively intact with good insight HX recently Dxed pancreatic CA, probable metastatic liver dz HX HTN, T2DM seen at ER:
- evaluation of generalized weakness.
- feeling nauseous for several months. and progressive weakness
- CT abdomen on 10/09/24 showed evidence of pancreatic cancer with liver metastases.
- She was admitted from 10/14/2024 until 10/15/2024 for intractable nausea.
Patient was seen by oncology as an outpatient last week.
- Patient does not want tissue Dxes , she wants hospice care
- not receiving any cancer treatment at this time.
- ongoing nausea but denies any vomiting.
- decreased appetite and poor POs is dehydrated.
- decreased Urine output
- She also reports feeling short of breath.
PHX; see above
Vital Signs
Temp Pulse Resp BP Pulse Ox
99.7 F 96 19 164/99 94
10/21/24 11:01 10/21/24 14:30 10/21/24 14:30 10/21/24 11:01 10/21/24 14:30
PE
Gen: NAD
HEENT: anicteric
Neck:supple
Lungs: CTA
Cor: RRR S1 S2
Abdomen: obese, soft
PHOTOGRAPHER APPRENTICE LITHOGRAPHIC: N
MS:
Psych:
Data
CXR
No acute cardiopulmonary process.
10/16/24 CT Chest PE Study
- No evidence of central pulmonary embolism.
- New small anterior pericardial effusion.
- Moderate size hiatal hernia, increased from prior CTA chest.
- Small portion of the included upper abdomen compared to recent prior study again demonstrating ascites and hepatic lesions suspicious for metastatic disease in this patient with known Pancreatic carcinoma.
EKG
NORMAL SINUS RHYTHM
INFERIOR INFARCT (CITED ON OR BEFORE 14-OCT-2024)
ANTEROLATERAL INFARCT (CITED ON OR BEFORE 14-OCT-2024)
T WAVE ABNORMALITY ANTERIOR LEADS
T-WAVE INVERSION IN INFERIOR LEADS
ABNORMAL ECG
WHEN COMPARED WITH ECG OF 16-OCT-2024 16:49,QUESTIONABLE CHANGE IN INITIAL FORCES OF LATERAL LEADS
INVERTED T WAVES HAVE REPLACED NONSPECIFIC T WAVE ABNORMALITY IN INFERIOR LEADS
Confirmed by VICTOR M SCHAEFER MD ([id number]) on 10/21/2024 11:32:50 AM
09/03/19 TTE
- LVEF 70-75%.
- Normal regional wall motion.
- Diastolic function indeterminate.
- Normal right ventricular size and function.
- Mild mitral regurgitation.
- Trileaflet aortic valve. Aortic valve opens normally. Mild to moderate aortic regurgitation.
- Mild tricuspid regurgitation. Estimated pulmonary artery pressure of 35-40 mmHg.
Compared to previous echo on 09/25/13, minimally progressive aortic regurgitation is noted.
ASSESSMENT & PLAN
Suspect advanced metastatic pancreatic CA with disease burden( poor appetite, nausea, abdomina distention, weakness
Newly radiologically Dxed Pancreatic CA with liver mets with elevated CA 19- 9 @ 375
Abdominal distention and persistent nausea no emesis
Recent CTC suggest Ascites
Of note: Cognitively intact with normal insight
- she does not want Biopsy or any invasive diagnostic study
- Patient request palliative care/ hospice care thus- CRM consult for evaluation of palliative care/ hospice care
- IR consult for evaluation of palliative abdominal paracentesis with fluid cytology
- Oncology consult ( Known to Dr Huff)
Elevated TPNI 0.08
No CP
EKG shows T wave inversions but no ST changes
- EKG PRN for CP
T2DM;- diet control
- not on any Meds
Benign HTN
- cont. Lisinopril
DVT Px: SCD
DNR per patient
IP MS
[2024-10-21 15:25] VITALS: BP 154/78; BP_SYST 102
[2024-10-21 16:35] VITALS: BP 141/69; BP_SYST 100
[2024-10-21 17:10] VITALS: BP 152/76; BMI 31.0
[2024-10-21] MEDS: TYLENOL 650 MG PO (17:42)
[2024-10-21] MEDS: ZOFRAN 4 MG IV (18:12)
--- NOTE | 2024-10-21 18:46 | PTCARENOTE ---
Patient admitted to 2126, VSS, AAOX3, stand by assist to ambulate to bathroom for mod urination. Bruise noted on L buttock with second RN Melanie, heels foam applied for blanchable redness. Air overlay on bed. Patient c/o nausea and mild abd pain,
medicated with PRN zofran and tylenol - see MAR. IVF infusing through L hand IV, admission questions completed with patient and patient's at bedside. Patient oriented to room and call coretta, on clear liquid diet, ringing appropriately.
[2024-10-21 18:48] LABS: Body Fluid Mononuclear 85.5 %; Body Fluid Polymorphonuclear 14.5 %; Body Fluid WBC 165 /CUMM
[2024-10-21 18:52] LABS: Body Fluid Second Tech FB
[2024-10-21 23:05] VITALS: BP 154/76
[2024-10-22 07:05] VITALS: BP 157/70
--- NOTE | 2024-10-22 07:17 | CON.ONC ---
Addendum entered and electronically signed by Tim Cruz MD 10/29/24 06:05:
Consult date 10/22/2024
Original Note:
Impression
Impression
Stage IV pancreatic cancer with liver metastasis (radiology diagnosis)
Weakness, abdominal discomfort
Wishes DNR and no therapy
Plan
Plan
As per her wishes, no plans for diagnostic biopsy as she does not wish invasive procedures such as biopsy and does not wish antineoplastic treatments such as chemotherapy or radiation.
Palliative care alone with home hospice is most appropriate.
Spoke with nursing team. They have already consulted hospice.
Oncology will sign off.
Patient History
History of Present Illness
Weakness, Nausea and Abdominal Discomfort
HPI: 84 y/o female recently found on imaging to have suspected metastatic pancreatic cancer who presents with weakness, nausea and abdominal discomfort. Patient reports since discharge from the hosptial on October 16 she has not been doing well at
home. She reports persistent nausea and very poor appetite. She reports increasing abdominal distention and abdominal discomfort. She denies fevers, sweats or chills. CT scan 10/09/2024: Findings consistent with pancreatic adenocarcinoma of the
pancreas. Secondary severe pancreatic atrophy and diffuse distention of the main pancreatic duct. Probable compromise of the splenic vein and portal vein. 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 Intrahepatic metastatic lesions. Ascites.
Mild portacaval adenopathy.
Patient has decided that she is not interested in therapy and does not therefore wish to have any diagnostic biopsy type procedures. She seems to have a different opinion and her he wishes to be more aggressive. He slept in her room all
night but currently is not in the room. The patient reiterates that her wishes are no diagnostic testing or therapy such as chemotherapy or radiation.
Past-Medical/Surgical History
PMH:
Metastatic Pancreatic Cancer
Diabetes Mellitus
Essential Hypertension
Uterine Cancer
Past Surgical History: :
Hysterectomy
Left Knee Replacement
SH:
Tobacco: Non-smoker
Alcohol: None
Drug: None
Personal:
Family History
FH: Noncontributory
Patient Medication
�Medication �Instructions �Recorded �Confirmed �Last Taken �Type
lisinopril 10 mg tablet 10 mg PO HS Blood Pressure 10/14/24 10/21/24 10/13/24 History
Active Medications
Generic Name Dose Route Start Last Admin
Trade Name Freq PRN Reason Stop Dose Admin
Acetaminophen 650 mg 10/21/24 17:03 10/21/24 17:42
Acetaminophen 325 Mg Tablet PO 11/18/24 17:02 650 mg
Q4HPRN PRN Administration
mild pain/ fever>100.5F
Hydromorphone HCl 0.25 mg 10/21/24 17:03
Hydromorphone 0.25 Mg/0.5 Ml Syringe IV 11/04/24 17:02
Q3HPRN PRN
severe pain
Sodium Chloride 1,000 mls @ 60 mls/hr 10/21/24 17:03 10/21/24 17:17
Nss IV 1,000 mls
.[id number] ANNALEE Administration
Lisinopril 10 mg 10/21/24 22:00 10/21/24 22:30
Lisinopril 10 Mg Tablet PO 11/18/24 21:59 Not Given
HS ANNALEE
Ondansetron HCl 4 mg 10/21/24 17:03 10/21/24 18:12
Ondansetron 4 Mg/2 Ml Vial IV 11/18/24 17:02 4 mg
Q6HPRN PRN Administration
NAUSEA/VOMITING
Prochlorperazine Edisylate 10 mg 10/21/24 17:03
Prochlorperazine 10 Mg/2 Ml Vial IV 11/18/24 17:02
Q6HPRN PRN
nausea
Senna/Docusate Sodium 1 tablet 10/21/24 20:00 10/21/24 20:02
Docusate W/Senna (Anai-Colace) Tablet PO 11/18/24 19:59 Not Given
BID ANNALEE
Sodium Chloride 0 flush 10/21/24 18:00
Sodium Chloride 0.9% (Flush) Syringe IV 11/18/24 17:59
PER PROTOCOL ANNALEE
Physical Exam
-
General: Comfortable
Cardiology: Normal Sinus Rhythm, S1 and S2
Pulmonary: Clear
GI: Soft and Distended
Extremities: No C/C/E
Neurology: Non Focal and Other (Competent to make medical decisions)
Psych: Calm
Labs
Lab Results
WBC 8.6 10^3/uL (4.8-10.8) 10/21/24 11:42
RBC 4.19 10^6/uL (4.20-5.40) L 10/21/24 11:42
Hgb 13.1 g/dL (12.0-16.0) 10/21/24 11:42
Hct 38.0 % (37.0-47.0) 10/21/24 11:42
MCV 90.7 fL (81.0-99.0) 10/21/24 11:42
MCH 31.3 pg (27.0-31.0) H 10/21/24 11:42
MCHC 34.5 g/dL (33.0-37.0) 10/21/24 11:42
RDW 13.5 % (11.5-14.5) 10/21/24 11:42
Plt Count 152 10^3/uL (130-400) 10/21/24 11:42
MPV 10.0 fL (7.4-10.4) 10/21/24 11:42
Abs Immat Gran (auto) 0.0 10^3/uL (0-0.05) 10/21/24 11:42
Absolute Neuts (auto) 7.0 10^3/uL (1.4-6.5) H 10/21/24 11:42
Absolute Lymphs (auto) 0.7 10^3/uL (1.2-3.4) L 10/21/24 11:42
Absolute Monos (auto) 0.8 10^3/uL (0.1-0.6) H 10/21/24 11:42
Absolute Eos (auto) 0.1 10^3/uL (0-0.7) 10/21/24 11:42
Absolute Basos (auto) 0.1 10^3/uL (0-0.2) 10/21/24 11:42
Immature Gran % 0.2 % (0-0.5) 10/21/24 11:42
Neutrophils % 81.3 % (42.2-75.2) H 10/21/24 11:42
Lymphocytes % 8.0 % (20.5-51.1) L 10/21/24 11:42
Monocytes % 8.7 % (1.7-9.3) 10/21/24 11:42
Eosinophils % 1.0 % (0-6) 10/21/24 11:42
Basophils % 0.8 % (0-2) 10/21/24 11:42
Creatinine 0.8 mg/dL (0.6-1.0) 10/21/24 13:07
Vital Signs
Vital Signs
Temp Pulse Resp BP Pulse Ox
98.2 F 89 17 154/76 94
10/21/24 23:05 10/21/24 23:05 10/21/24 23:05 10/21/24 23:05 10/22/24 00:42
--- NOTE | 2024-10-22 08:51 | W.PN.HOSP.TC ---
Today's Communication/Plan
-
Discharge home with hospice
Assessment / Plan
Assessment / Plan
84-year-old female with recently diagnosed metastatic pancreatic cancer who presented to ED for weakness, nausea, abdominal discomfort. She has good insight and judgment about her recent diagnosis. Status post therapeutic paracentesis yielding
2700 mL ascitic fluid. She does not want further workup or invasive procedures. She is requesting comfort measures only while in the hospital, and eventual discharge to hospice at home when able. Her is at bedside, and supportive of her
wishes and agreeable with this plan. Discussed role of case management and clinical rehabilitation liaison. Will discharge home with home hospice.
-Tolerating orals, discontinue IV access. Supportive measures and comfort care. Regular diet. CM/hospice consulted. Discharge home with hospice.
Anticipated Discharge: Today
Subjective/Interval History
-
Date of Service: October 22, 2024
No acute events overnight. This morning she has no complaints and feels comfortable. Review of systems negative-- denies dizziness, chest pain, shortness of breath, abdominal pain, nausea, vomiting, diarrhea, constipation.
Objective Data
-
Vital Signs:
Vital Signs
Temp Pulse Resp BP Pulse Ox
98.1 F 76 16 157/70 96
10/22/24 07:05 10/22/24 07:05 10/22/24 07:05 10/22/24 07:05 10/22/24 07:05
I&O
10/21/24 10/22/24 10/23/24
06:59 06:59 06:59
Intake Total 240 / 240
Output Total 3 / 3
Balance 237 / 237
Review of Systems
-
History Source: Patient
All other systems: Reviewed and negative
Physical Exam
-
General: Well Developed, No Apparent Distress, Comfortable, Conversant and Obese; Negative Pain, Fever, Chills or Sweats
HEENT: Normocephalic and Atraumatic
Respiratory: Non Labored Respirations
GI: Soft, Nondistended, Normal Bowel Sounds and Tender
Musculoskeletal: No Clubbing, No Cyanosis and No Edema
Skin: Warm and Dry
Neuro: Awake, Alert, Oriented and Nonfocal/Grossly Intact
Psych: Calm and Intact Judgement/Insight
Data Reviewed
-
CT Scan: Image personally visualized and interpreted and Report Reviewed by me
Labs: Labs Reviewed by me
--- NOTE | 2024-10-22 10:27 | HOSPNOTE ---
Patient will be going home today with hospice. I explained hospice and the patient and spouse are in agreement. Equipment was ordered for delivery today and once patient is home we will admit onto hospice services. Spouse will be driving patient.
Attending and CM aware.
--- NOTE | 2024-10-22 10:44 | CM ---
Patient and seen at bedside. Per physician patient is asking for hospice. CM confirmed and sent referral to [facility] hospice. Patient and want to go home today and sign on to hospice for home hospice care with [facility]. CM reviewed IMM and
form placed on chart. Patient plan is for to transport via car. CM will continue to follow for discharge planning needs.
Plan; home with [facility] hospice to follow
[2024-10-22 11:51] VITALS: BP 151/62
--- NOTE | 2024-10-22 12:02 | PTCARENOTE ---
Patient being discharged home on hospice. IV removed by shift supervisor rn, patient dressed and gathered belongings in room with assistance of . Vitals taken by tech. This RN reviewed discharge paperwork with patient and patient's , both
verbalized understanding. Patient given lunch prior to DC, communicated with hospice team when patient left hospital. Patient being transported home by spouse, taken down to car via staff escort and wheelchair.
--- NOTE | 2024-10-22 14:39 | W.PN.UPDATE ---
Update Note
Progress Note Update
Seen and examined by me independently in collaboration with the emergency medical services coordinator Dr. Jose.
Lab data and imaging data reviewed.
Addendum as below :
Patient with stage IV pancreatic cancer with significant disease burden based on the CT imaging presented with abdominal pain. Status post therapeutic ascites tap.
She is seen by oncology today.
Patient has made it clear her wishes going forward is no cancer related treatments and she wants to be comfortable and wants to be on hospice. Hospice team was consulted. She signed her for hospice. Has been is at bedside and understands the
wishes of his and wants the support her in her decisions and agrees for home hospice.
Along with an pain regimen also add gabapentin for neuropathy competent.
DC home with hospice.
Total time of discharge 35 minutes.
--- NOTE | 2024-10-22 19:37 | W.DCSUMMARY ---
Discharge Summary
Discharge Data
Date of Admission: 10/21/24
Date of Discharge: 10/22/24
-
Pending Results: No
Hospital Course
CC PCP ARIELLE RAMOS
Discharging Physician : Dr. Jose/Dr. Asif
Disposition : Home with hospice
Primary care physician : Arielle Ramos
Principal Discharge diagnosis : Stage 4 Pancreatic Cancer with Liver Metastasis (radiology diagnosis)
Chronic Discharge diagnosis : Diabetes type 2, hypertension
Hospital Course : She was recently diagnosed with metastatic pancreatic cancer, and she presented to the hospital with weakness, nausea, abdominal discomfort. She underwent therapeutic paracentesis yielding 2700 mL fluid. She did not want further
workup or invasive procedures, and requested comfort measures only while in the hospital. She had good insight and judgment about her recent diagnosis, and her was supportive of her wishes. She was discharged home with home hospice per
patient request.
Discharge Plan
-
Patient Disposition: Home with Hospice
Discharge Diagnosis/Procedures: Stage 4 Pancreatic Cancer with Liver Metastasis (radiology diagnosis)
Condition: Fair
Diet: No restrictions and As tolerated
Activity: As tolerated
Driving Restrictions: No driving
Bathing Restrictions: OK to Shower
Other Services: Hospice
Instructions: Preventing falls in adults
Referrals:
Arielle Ramos PA [Family Provider] - (Call your Primary Care to update them on your recent hospital visit and transition to Home Hospice.)
Additional Discharge Medication Instructions: Take gabapentin 3 times per day to help with nerve pain from the pancreatic cancer.
Your Hospice team will update your medication list when you are home. For medication questions or refills, please call your Hospice team or Primary Care.
Prescriptions:
New
gabapentin 100 mg capsule
100 mg PO TID 30 Days Qty: 90 0RF
Continued
lisinopril 10 mg tablet
10 mg PO HS
Discharge Orders:
Discharge Patient (As Directed); Ordered 10/22/24
Ordered By: Iram Jose
Discharge Date and Time
Discharge Date/Time: 10/22/24 12:17
Print Language: [id number]
== END 2024-10-22 12:17 | disposition hospice, home (50) | DRG 436 ==
LOC: 2 NORTH 15:35
PROVIDERS: Physician Assistant; Physician Assistant Medical; Radiology Diagnostic Radiology; Student in an Organized Health Care Education/Training Program; ADMITTING PHYSICIAN Internal Medicine; ATTENDING PHYSICIAN Internal Medicine; EMERGENCY PHYSICIAN Emergency Medicine; FAMILY PHYSICIAN Physician Assistant; OTHER PHYSICIAN Internal Medicine Hematology & Oncology
PROC: 0W9G3ZZ Drainage of Peritoneal Cavity, Percutaneous Approach (ICD-10-PCS; 2024-10-21)
DX: C25.9 Malignant neoplasm of pancreas, unspecified (principal); C78.7 Secondary malignant neoplasm of liver and intrahepatic bile duct; R18.0 Malignant ascites; E86.0 Dehydration; Z51.5 Encounter for palliative care; I10 Essential (primary) hypertension; E11.9 Type 2 diabetes mellitus without complications; R63.0 Anorexia; K59.00 Constipation, unspecified; Z66 Do not resuscitate; Z96.652 Presence of left artificial knee joint; Z90.710 Acquired absence of both cervix and uterus; Z85.42 Personal history of malignant neoplasm of other parts of uterus
CPT/HCPCS: 88305; 49083; 71046; 80053; 83690; 83735; 84484; 85025; 88112; 88341; 88342; 89051; 93005; 96361; 96374; 99285

== ENCOUNTER 2024-10-28 01:06 | Inpatient (IN) | payer OTHER, SELFPAY ==
[2024-10-27 16:55] VITALS: BP 159/79
--- NOTE | 2024-10-27 17:13 | ED.CVA ---
History of Present Illness
General
Chief Complaint: CVA/TIA Symptoms
Time Seen by Provider: 10/27/24 17:06
Onset of Stroke Symptoms
Onset of symptoms known: No
Time pt last seen normal is known: Yes
Date last time pt seen normal: 10/25/24
Time last time pt seen normal: 21:30
History of Present Illness
History of Present Illness:
Patient is a 84-year-old woman with history of pancreatic cancer with mets to the liver on hospice presenting to the emergency department with paralysis to the left side. Patient was last seen normal 2 days ago at 9:30 PM. Yesterday morning she
woke up and patient's noticed that she was speaking differently and had some weakness. They called hospice who evaluated patient. Today symptoms progressed and patient's granddaughter was visiting. Given the severity of symptoms she
called 911 as there was concern for stroke. She is on morphine and Ativan. She was last given dose at 12 PM. No known falls. She is not on a blood thinner.
Past History
Past History
ED Past Medical History: Cancer (Uterine cancer) and HTN
ED Past Surgical History: Gynecological (Hysterectomy) and Orthopedic (knee surgery)
Social History
Tobacco: Non-smoker
Alcohol: None
Drug: None
Personal:
Living: with family
Employment: Retired
Phy Exam
Physical Exam
Physical Exam:
GENERAL: in no acute distress
HEENT: normocephalic, extraocular movements intact, moist oral mucosa
NECK: normal inspection
RESPIRATORY: no respiratory distress, clear to auscultation bilaterally
CARDIOVASCULAR: regular rate and rhythm
ABDOMEN/: soft, non-distended, non-tender to palpation, no rebound or guarding
EXTREMITIES: non-tender, no edema/swelling
NEUROLOGIC: Right-sided gaze deviation, left pupil slightly larger than the right, right upper extremity strength 4/5, left upper extremity strength 0/5, right lower extremity strength 0/5, left lower extremity strength 0/5, normal sensation RUE
SKIN: warm
Course
Orders/Labs/Results
Orders:
Orders
10/27/24 17:08
CT Head & Neck Angio W/wo IV Urgent
Comment:
Reason For Exam: left sided paralysis
10/27/24 17:13
Electrocardiogram (*1) Urgent
Reason for Study: Fatigue / Weakness
EKG- Treatment ONCE
10/27/24 17:46
Complete Blood Count/With Diff Urgent
Comprehensive Metabolic Panel Urgent
10/27/24 19:25
DIETARY IP CONSULT Routine
Reason for Consult: cva swallowing study
10/28/24 Breakfast
NPO
Reason for opting out of [employer] order writing: Provider Decision
Allow oral meds: Yes
Allow clear liquids: No
Abnormal Lab Results
10/27/24
17:46
RBC 3.55 L 10^6/uL
(4.20-5.40)
Hgb 11.2 L g/dL
(12.0-16.0)
Hct 33.0 L %
(37.0-47.0)
MCH 31.5 H pg
(27.0-31.0)
RDW 14.6 H %
(11.5-14.5)
Plt Count 96 L D 10^3/uL
(130-400)
Abs Immat Gran (auto) 0.1 H 10^3/uL
(0-0.05)
Absolute Lymphs (auto) 0.6 L 10^3/uL
(1.2-3.4)
Absolute Monos (auto) 0.7 H 10^3/uL
(0.1-0.6)
Immature Gran % 0.6 H %
(0-0.5)
Neutrophils % 81.5 H %
(42.2-75.2)
Lymphocytes % 7.4 L %
(20.5-51.1)
Carbon Dioxide 21 L mmol/L
(22-30)
BUN 27 H mg/dl
(7-17)
Glucose 158 H mg/dl
(70-99)
Total Bilirubin 2.0 H mg/dl
(0.2-1.3)
AST 98 H U/L
(14-36)
ALT 71 H U/L
(0-35)
Alkaline Phosphatase 583 H U/L
(38-126)
Total Protein 5.9 L g/dl
(6.3-8.2)
Albumin 2.8 L g/dl
(3.5-5.0)
10/27/24 17:46
10/27/24 17:46
Vital Signs
Initial and Last Documented VS:
Initial Vital Signs
Pulse Resp BP Pulse Ox
94 20 159/79 92
10/27/24 16:55 10/27/24 16:55 10/27/24 16:55 10/27/24 16:55
Last Documented Vital Signs
Pulse Resp BP Pulse Ox
94 19 159/79 93
10/27/24 19:00 10/27/24 19:00 10/27/24 16:55 10/27/24 19:00
MDM/Problems Addressed
Differential Diagnosis Includes:
Patient is a 84-year-old woman with history of metastatic pancreatic cancer with mets to the liver currently on hospice presenting to the emergency department with flaccid paralysis to the left side with a last known normal of 10/25 9:30 PM.
Differential consist of CVA versus hemorrhage versus new metastases. Given the patient is out of the window stroke alert was not called. I did discuss with neurology who evaluated patient. After shared decision making with patient's who
is power of deputy commonwealth's attorney patient's CODE STATUS remains DNR/DNI. However they would like to temporarily revoke hospice and would like to proceed with imaging to see if there is anything reversible.
*Critical Care Note
Total Time (30-74mins, 75-104mins- exclusive of procedures): Not Applicable (61)
comment:
Critical care statement: A total of 61 minutes of critical care time was provided for this patient. This includes management of unstable vital signs, evaluation of the patient at bedside, reviewing the patient's pertinent medical records, ordering
and reviewing studies, arranging urgent treatment with development of a management plan, evaluating patient's response to treatment, frequent reassessment, and discussion with consultants. This time was separate from time utilized to perform the
aforementioned documented procedures.
Update Note
Update Note:
CT scan per my interpretation with infarct of the right MCA territory. I did receive notification as there is a Abrupt cut off of the right MCA M1 segment.
Neuro evaluated patient at bedside. Not recommending TNKase/thrombectomy given the patient is out of the window and is a completed infarct seen on CT scan. Patient's family updated of these findings. After thorough discussions with both
neurology, hospice and myself patient's family would revoke hospice. Patient's CODE STATUS remains DNR/DNI. They would like patient to be admitted for PT/rehab and further risk factor management.
ED Attending Note
-
Portions of this chart may have been created with voice recognition software.� Occasional wrong word or��sound alike� substitutions may have occurred due to the inherent limitations of voice recognition software.
Discharge Plan
Departure
Patient Disposition: Admit
Date of Disposition: 10/27/24
Time of Disposition: 19:56
Presentation/result/management discussed w/ accepting MD/DO: Hospitalist
Discharge Problem:
Acute CVA (cerebrovascular accident)
Prescriptions:
No Action
lorazepam 2 mg/mL Concentrate
0.5 mg PO Q4H
haloperidol lactate [Haldol] 2 mg/mL Concentrate
1 mg PO Q4HPRN PRN (Reason: agitation/nausea)
morphine concentrate 10 mg/0.5 mL Syringe
5 mg PO Q4H
Referrals:
Eddie Ramos PA [Family Provider] -
Interventions
Interventions:
*Risk Screen - Suicide Last Done: 10/27/24 16:55
*General Assessment Last Done: 10/27/24 16:55
*Neglect/Abuse Screening Last Done: 10/27/24 16:55
*ED- Fall Risk Assessment Last Done: 10/27/24 16:55
*ED COVID-19 Vaccine History Last Done: 10/27/24 16:55
ED- Pulmonary Assessment Last Done: 10/27/24 19:20
ED- Neurological Assessment Last Done: 10/27/24 19:20
ED- Cardiac Assessment Last Done: 10/27/24 19:20
ED Swallowing Screen Last Done: 10/27/24 17:07
Discharge Date and Time
Print Language: NORWEGIAN
[2024-10-27 17:57] LABS: % Basophils 0.6 % (0-2); % Eosinophils 0.8 % (0-6); % Immature Granulocytes 0.6 % (0-0.5); % Lymphocytes 7.4 % (20.5-51.1); % Monocytes 9.1 % (1.7-9.3); % Neutrophils 81.5 % (42.2-75.2); Absolute Basophils 0.1 10^3/uL (0-0.2); Absolute Eosinophils 0.1 10^3/uL (0-0.7); Absolute Immature Granulocytes 0.1 10^3/uL (0-0.05); Absolute Lymphocytes 0.6 10^3/uL (1.2-3.4); Absolute Monocytes 0.7 10^3/uL (0.1-0.6); Absolute Neutrophils 6.4 10^3/uL (1.4-6.5); Hemoglobin 11.2 g/dL (12.0-16.0); Mean Corp Hgb Conc. 33.9 g/dL (33.0-37.0); Mean Corpuscular Hgb 31.5 pg (27.0-31.0); Nucleated Red Blood Cells % 0 %; Red Blood Cell Count 3.55 10^6/uL (4.20-5.40); Red Cell Dist. Width 14.6 % (11.5-14.5); White Blood Cell Count 7.8 10^3/uL (4.8-10.8)
[2024-10-27 18:05] LABS: ALT (SGPT) 71 U/L (0-35); AST (SGOT) 98 U/L (14-36); Albumin 2.8 g/dl (3.5-5.0); Alkaline Phosphatase 583 U/L (38-126); Blood Urea Nitrogen 27 mg/dl (7-17); Calcium 8.6 mg/dl (8.4-10.2); Carbon Dioxide 21 mmol/L (22-30); Chloride 106 mmol/L (98-107); Glucose 158 mg/dl (70-99); Potassium 4.8 mmol/L (3.5-5.1); Sodium 139 mmol/L (135-145); Total Protein 5.9 g/dl (6.3-8.2); eGFR > 60.00
[2024-10-27 18:37] LABS: Mean Platelet Volume 10.4 fL (7.4-10.4); Platelet Count 96 10^3/uL (130-400)
--- NOTE | 2024-10-27 18:39 | CON.NEURO ---
Neuro Assessment/Plan
Assessment
Head CT imgs rev'd, acute infarct entire right MCA territory
CTA head/neck imgs rev'd, right MCA M1 segment occlusion with small amount distal flow
Right MCA stroke, explains her left sided weakness though I do not see any infarct affecting the language areas and therefore don't have a good explanation for why she is mute; though the language cortex is the most common place for emboli and she
may well have embolized there as well. With stroke seen in the parenchyma on the head CT, this represents completed infarct, and it is not possible to reverse the stroke; certainly if she were here yesterday morning and hospice were revoked, she
could've been a TNK candidate which works ~40% of the time; and if she were here yesterday afternoon she could have been a thrombectomy candidate; however these aggressive measures are not in line with hospice care where a patient is allowed to
naturally at home with no more tests or IV's, as nobody wants to in the hospital.
Plan
At this point, the patient not eating/drinking; I don't believe that aggressive measures to feed/hydrate her would be helpful;
I have no treatments to reverse this, and I believe that hospice should continue to be the plan of care and allow the patient to naturally
As her states that he cannot take care of her at home, the patient will need to be admitted
Consultation
Order
Date of Consultation: 10/27/24
Requesting Provider: Moira Berry
Reason for Consult: stroke
Subjective/Objective
Subjective Data
Date of Service: October 27, 2024
She is an 84 year old right handed woman with pancreatic cancer, liver mets, recently discharged to home with hospice as she was estimated to have ~3 months left to live; initial history was that she was last seen normal 9:30 pm 2 nights ago,
however later told me he saw patient ambulate to the bathroom yesterday morning at 7 am; she ambulated back to bed and couldn't get back to bed; he found her with dense left sided weakness and mute; called hospice nurse who came and advised
continuing hospice care, instructed to give symptomatic medication if patient appeared to be in pain. Today, patient's granddaughter was visiting, they brought her to the ED, revoked hospice care and requested that the patient be treated
aggressively.
Objective Data
Vital Signs
Pulse Resp BP Pulse Ox
94 20 159/79 92
10/27/24 16:55 10/27/24 16:55 10/27/24 16:55 10/27/24 16:55
Lab Results
10/27/24 17:46
10/27/24 17:46
Sodium 139 mmol/L (135-145) 10/27/24 17:46
Potassium 4.8 mmol/L (3.5-5.1) 10/27/24 17:46
BUN 27 mg/dl (7-17) H 10/27/24 17:46
Glucose 158 mg/dl (70-99) H 10/27/24 17:46
Calcium 8.6 mg/dl (8.4-10.2) 10/27/24 17:46
Patient Allergies
No Known Allergies Allergy (Verified 10/27/24 17:02)
Physical Exam
-
nonverbal
inconsistently following simple commands and appears to answer yes/no by squeezing hand
RUE antigravity; RLE wiggles toes, LUE/LE flacid
Medications
-
Home Medications
�Medication �Instructions �Recorded
lisinopril 10 mg tablet 10 mg PO HS Blood Pressure 10/14/24
gabapentin 100 mg capsule 100 mg PO TID Pain 1 month #90 caps 10/22/24
--- NOTE | 2024-10-27 19:04 | HOSPNOTE ---
Met with spouse and DIL in emergency room. Explained that seeking further treatment for stroke will require revocation of hospice services. Spouse states that he would like to revoke hospice services and continue treatment. Spouse refused to sign
revocation form or look at it. 'I do not trust hospice and I am not signing anything.' Notified nurse Mandi and Dr. Berry.
[2024-10-27 19:16] VITALS: BP 134/75
[2024-10-27 20:00] VITALS: BP 178/64
[2024-10-27 21:00] VITALS: BP 198/98
[2024-10-27 22:00] VITALS: BP 144/75
[2024-10-27 23:00] VITALS: BP 152/68
--- NOTE | 2024-10-27 23:50 | HPS.HSE ---
Family Physician
-
Family Physician: JANENE Negro
Chief Complaint
-
left-sided paralysis and aphasia
History of Present Illness
Patient is an 84-year-old woman with past medical history significant for metastatic pancreatic cancer, with metastatic disease to the liver, uterine cancer, currently on hospice prior to ED visit today, and hypertension who presented to the
emergency department secondary to paralysis to the left side. She was last seen normal 2 days ago at 9:30 PM. When she woke up yesterday her noticed that she was speaking differently, with increased weakness. They called hospice to
evaluate the patient. The symptoms have progressed today and the patient has hemiparesis of the left side and aphasia. The family temporarily revoked hospice in order to proceed with testing. Stroke alert was called. Of note she is on morphine
and Ativan outpatient.
Neurology was called and saw the patient in the emergency department. CT scan was obtained.
CT scan is positive for an acute infarct of the entire right MCA territory. CTA of the head and neck showed right MCA M1 segment occlusion with small amount distal flow.
Per neurology there is a concern that she may have embolized the language cortex given the findings of no infarct affecting the language area. Per neurologist the stroke seen in the parenchyma on the head CT represents complete infarct and is not
possible to reverse the stroke. She was not a TNK candidate given the timing of presentation. The patient is not eating and drinking.
The is unable to take care of the patient at home and the patient is being admitted at this point.
Medical History
Past Medical History
Past Medical History: Reports Other
Additional Past Medical History:
Metastatic Pancreatic Cancer
Diabetes Mellitus
Essential Hypertension
Uterine Cancer
Past Surgical History: Reports Other
Additional Past Surgical History:
Hysterectomy
Left Knee Replacement
Social History
Tobacco: Non-smoker
Alcohol: None
Drug: None
Personal:
Family History
Family History: Not pertinent
Allergies / Home Medications
Allergies reflects when Allergies were last updated in [employer].
Home Medications with original date entered in [employer]
Allergy/Medication List:
Allergies
Allergy/AdvReac Type Severity Reaction Status Date / Time
No Known Allergies Allergy Verified 10/27/24 17:02
Home Medications
haloperidol lactate 2 mg/mL oral concentrate 1 mg PO Q4HPRN PRN agitation/nausea 10/27/24
lorazepam 2 mg/mL oral concentrate 0.5 mg PO Q4H 10/27/24
morphine concentrate 10 mg/0.5 mL oral syringe (FOR ORAL USE ONLY) 5 mg PO Q4H 10/27/24
Review of Systems
-
A 12 point ROS was completed and negative except as noted: Yes
Physical Exam
Vital Signs
Vital Signs
Pulse Resp BP Pulse Ox
87 16 152/68 92
10/27/24 23:00 10/27/24 23:00 10/27/24 23:00 10/27/24 23:00
Physical Exam
General: Appears Chronically Ill
HEENT: Other (left-sided facial droop, aphasia)
Respiratory: Clear
Cardiac: S1/S2 and Regular Rhythm
GI: Soft, Non Tender, Non Distended and Normal Bowel Sounds
Musculoskeletal: No Clubbing, No Cyanosis and No Edema
Skin: Warm and Dry
Neuro: Awake and Other (able to follow commands by squeezing right hand and wiggling left foot when asked, unable to follow command to follow finger with her eyes, unable to speak other then grunts)
Psych: Calm
Laboratory Results
-
10/27/24 17:46
10/27/24 17:46
Laboratory Results
Total Bilirubin 2.0 mg/dl (0.2-1.3) H 10/27/24 17:46
AST 98 U/L (14-36) H 10/27/24 17:46
ALT 71 U/L (0-35) H 10/27/24 17:46
Alkaline Phosphatase 583 U/L (38-126) H 10/27/24 17:46
Impression/Plan
-
IMPRESSION:
#Acute infarct of the entire right MCA territory associated with left-sided paralysis and aphasia, she is able to wiggle her toes and foot slightly on command
- CTA of the head and neck showed right MCA M1 segment occlusion with small amount distal flow.
-Neurology saw the patient at bedside, she is out of the window for TPA
-the family revoked hospice for now, and we will get CM consultation and discuss care issues tomorrow pending clinical course overnight.
-aspirin therapy
-PT evaluation
-CM consultation
Per Neurology note ' At this point, the patient not eating/drinking; I don't believe that aggressive measures to feed/hydrate her would be helpful;
I have no treatments to reverse this, and I believe that hospice should continue to be the plan of care and allow the patient to naturally
As her states that he cannot take care of her at home, the patient will need to be admitted'
-gentle IV hydration tonight per discussion with the patient's
-turn patient every 2 hours
-neuro-checks
#Metastatic pancreatic cancer to the liver, the patient had previously declined chemotherapy
#History of uterine cancer s/p chemotherapy
#DM
#Essential HTN
DVT proph-PCDs
DNR/DNI
[2024-10-28] VITALS: BP 160/71
[2024-10-28 01:00] VITALS: BP 147/79
[2024-10-28] MEDS: ASPIRIN 300 MG RECTAL (02:05)
[2024-10-28 04:00] VITALS: BP 163/82
[2024-10-28 04:19] LABS: HDL Cholesterol 36 mg/dl; LDL Cholesterol, Calculated 116 mg/dl; Total Cholesterol 177 mg/dl (50-199); Triglyceride 127 mg/dl (10-149); Very Low Density Lipoprotein 25 mg/dl (0-30)
[2024-10-28 06:41] LABS: Urine Albumin 2+ (Neg - Trace); Urine Bilirubin 1+ (Negative); Urine Character Clear (Clear); Urine Color Amber; Urine Glucose Negative (Negative); Urine Ketone 1+ (Negative); Urine Leukocyte Negative (Negative); Urine Nitrite Negative (Negative); Urine Occult Blood 2+ (Negative); Urine Urobilinogen 1+ (Neg - 1+)
[2024-10-28 07:16] LABS: Urine Squamous Cell 0-2 /LPF (Few)
[2024-10-28 07:17] LABS: Urine Red Blood Cell 0-2 /HPF (0-2); Urine White Cell 0-2 /HPF (0-5)
[2024-10-28 08:00] VITALS: BP 128/71
--- NOTE | 2024-10-28 09:20 | PTOTSP ---
Speech Language Pathology
Pt seen for speech/language evaluations. Pt with severe expressive and mod-severe receptive aphasia. Unsure if component of apraxia of speech present. Pt did not vocalize at all during evaluation and did not appear to make any attempts in
response to cueing. Simple yes/no questions with use of thumbs up= 0%. Simple 1-step commands= 50%. Significant R gaze preference noted with eyes remaining closed throughout evaluation. When APPLICATIONS SYSTEMS ANALYST manually opened eyes, no visual fixation or
tracking noted.
Pt also seen for clinical bedside swallow evaluation. P.O. trials of thin water via pipetted straw and puree via tsp attempted. Poor prefeeding skills with pt initially biting down on spoon with no active stripping of bolus. This improved with
verbal cueing and downward pressure from spoon. Initiated swallow with all trials after a delay; however, majority of puree suctioned from oral cavity despite swallow. Not appropriate for oral intake at this time.
Recommend:
(1) Strict NPO, including oral meds
(2) Oral care 4x/day with suctioning as needed
(3) Not appropriate for Aspiration Risk Hydration Protocol (ARHP) at this time
(4) For yes/no questions, ask opposite as well to determine accuracy
(5) Provide directions in simple yes/no format
(6) APPLICATIONS SYSTEMS ANALYST to continue to follow
--- NOTE | 2024-10-28 10:09 | W.DCSUMMARY ---
Discharge Summary
Discharge Data
Date of Admission: 10/28/24
Date of Discharge: 10/28/24
-
Pending Results: No
Hospital Course
Discharge diagnosis:
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
Metastatic pancreatic cancer to the liver, on hospice on home
History of uterine cancer status postchemotherapy
Diabetes
Essential hypertension
Consults: Neurology
Hospital course:
84-year-old female with a past medical history of metastatic pancreatic cancer on hospice at home, and uterine cancer, who was admitted for acute infarct of the entire MCA territory with associated left-sided paralysis and aphasia. Patient was seen
in conjunction with neurology. She was outside of the window for tPA. Patient was recently released from the hospital on 10/22/2024, and signed onto hospice for her metastatic pancreatic cancer. She was very adamant about her wishes at that time.
She did not want treatment, she did not want to be in the hospital. Due to her current clinical condition as well as her history of metastatic pancreatic cancer, in conjunction with her wishes, family decided to transition her to comfort care
measures only. She is discharged to general inpatient hospice.
Disposition: General inpatient hospice
Discharge planning: Required 50 minutes
Discharge Plan
-
Patient Disposition: Hospice - Inpatient
Referrals:
Eddie Ramos PA [Family Provider] -
Prescriptions:
No Action
lorazepam 2 mg/mL Concentrate
0.5 mg PO Q4H
haloperidol lactate [Haldol] 2 mg/mL Concentrate
1 mg PO Q4HPRN PRN (Reason: agitation/nausea)
morphine concentrate 10 mg/0.5 mL Syringe
5 mg PO Q4H
Discharge Orders:
Discharge Patient (As Directed); Ordered 10/28/24
Ordered By: Aleksandar Pat
Discharge Date and Time
Discharge Date/Time: 10/28/24 14:35
Print Language: TAIWANESE
[2024-10-28 12:00] VITALS: BP 146/83
--- NOTE | 2024-10-28 12:14 | CM ---
Initial assessment completed at bedside in ED with and son, Petr
Pharmacy verified: [facility]
Lives with ; one floor home; one step to enter; no railing; bath has stall shower
PLOF: reported that 2 days ago patient was independent with personal care, ADLs, ambulated
DME: [employer]
NO SNF utilization history; past 2 weeks prior to this admission was being followed by Hospice at home
Her son, secondary contact, Petr Wiggins (phone # [phone]) lives in [place], [place]
Discharge plan to be determined; CM will monitor and support accordingly
--- NOTE | 2024-10-28 12:58 | HOSPNOTE ---
Patient will be admitted inpatient hospice for management of anxiety and pain that could not be managed outside of these dominique. Family in agreement with inpatient hospice after a long discussion. Updated nurse and Attending was present for meeting.
--- NOTE | 2024-10-28 14:24 | CHAP ---
request relayed to Fr. Chew, men's custom hair piece consultant today. He anticipates arriving shortly.
== END 2024-10-28 14:35 | disposition hospice, inpatient (51) | DRG 65 ==
LOC: ED 01:06
PROVIDERS: Nurse Practitioner Gerontology; ADMITTING PHYSICIAN Internal Medicine; ATTENDING PHYSICIAN Family Medicine; CONSULT PHYSICIAN Psychiatry & Neurology Clinical Neurophysiology; EMERGENCY PHYSICIAN Student in an Organized Health Care Education/Training Program; FAMILY PHYSICIAN Physician Assistant
DX: I63.511 Cerebral infarction due to unspecified occlusion or stenosis of right middle cerebral artery (principal); C25.9 Malignant neoplasm of pancreas, unspecified; G81.94 Hemiplegia, unspecified affecting left nondominant side; C78.7 Secondary malignant neoplasm of liver and intrahepatic bile duct; Z92.21 Personal history of antineoplastic chemotherapy; Z85.42 Personal history of malignant neoplasm of other parts of uterus; Z90.710 Acquired absence of both cervix and uterus; Z96.652 Presence of left artificial knee joint; Z66 Do not resuscitate; E11.9 Type 2 diabetes mellitus without complications; I10 Essential (primary) hypertension; R47.01 Aphasia; Z51.5 Encounter for palliative care
CPT/HCPCS: 70496; 70498; 80053; 80061; 81003; 81015; 85025; 92523; 92610; 93005; 99291; Q9967

== ENCOUNTER 2024-10-28 14:35 | Inpatient (IN) | payer OTHER, SELFPAY ==
--- NOTE | 2024-10-28 14:56 | ADM.HSP ---
Admission - Hospice
History of Present Illness
84-year-old female with a past medical history of metastatic pancreatic cancer on hospice at home, and uterine cancer, who was admitted for acute infarct of the entire MCA territory with associated left-sided paralysis and aphasia. Patient was seen
in conjunction with neurology. She was outside of the window for tPA. Patient was recently released from the hospital on 10/22/2024, and signed onto hospice for her metastatic pancreatic cancer. She was very adamant about her wishes at that time.
She did not want treatment, she did not want to be in the hospital. Due to her current clinical condition as well as her history of metastatic pancreatic cancer, in conjunction with her wishes, family decided to transition her to comfort care
measures only. She is discharged to general inpatient hospice.
Reason for Hospice Admission
Comfort care measures only.
Review of Systems
Unable to obtain full review of systems at this time due to: Acuity
History Source: Family and Nursing
Constitutional: Other (Poor oral intake, dysphagia, dysarthria, left-sided hemiparesis)
Physical Exam
General: Comfortable
Respiratory: Clear to Auscultation
Cardiology: Regular Rhythm
GI: Soft
Musculoskeletal: No Clubbing, No Cyanosis and No Edema
Skin: Warm
Neuro: Other (Left-sided hemiparesis, aphasia, dysphagia)
Psych: Calm
Assessment/Medication Plan
Generic Name Dose Route Start Last Admin
Trade Name Freq PRN Reason Stop Dose Admin
Acetaminophen 650 mg 10/28/24 14:49
Acetaminophen 325 Mg Tablet PO 11/25/24 14:48
Q4HPRN PRN
mild pain, BURK, or temp >100.4F
Acetaminophen 650 mg 10/28/24 14:49
Acetaminophen 650 Mg Rectal Suppository RECTAL 11/25/24 14:48
Q4HPRN PRN
mild pain, BURK, or temp >100.4F
Al Hydrox/Mg Hydrox/Simethicone 30 ml 10/28/24 14:49
Mag/Al/Simethicone Suspension 30 Ml Cup PO 11/25/24 14:48
Q6HPRN PRN
heartburn
Bisacodyl 10 mg 10/28/24 14:49
Bisacodyl 10 Mg Rectal Suppository RECTAL 11/25/24 14:48
DAILYPRN PRN
if no BM for 3 days
Glycopyrrolate 0.2 mg 10/28/24 14:49
Glycopyrrolate 0.2 Mg/Ml Vial IV 11/25/24 14:48
Q4HPRN PRN
excessive secretions
Hyoscyamine Sulfate 0.125 mg 10/28/24 14:49
Hyoscyamine Sulfate 0.125 Mg/Ml In Oral Syringe SL 11/25/24 14:48
Q4HPRN PRN
excessive secretions
Morphine Sulfate/Sodium Chloride 100 mg in 100 mls @ 0 mls/hr 10/28/24 15:00
Morphine IV
PER PROTOCOL ANNALEE
Protocol
Per Protocol
Lorazepam 0.5 mg 10/28/24 14:49
Lorazepam 2 Mg/Ml Vial IV 11/25/24 14:48
Q2HPRN PRN
anxiety
Protocol
Morphine Sulfate 2 mg 10/28/24 14:49
Morphine 2 Mg/Ml Syringe IV 11/11/24 14:48
Q1HPRN PRN
moderate-severe pain / dyspnea
Morphine Sulfate 0 mg 10/28/24 14:49
Morphine 2 Mg/Ml Syringe IV 11/11/24 14:48
[id number] PRN
moderate-severe pain / dyspnea
Protocol
Ondansetron HCl 4 mg 10/28/24 14:49
Ondansetron 4 Mg/2 Ml Vial IV 11/25/24 14:48
Q6HPRN PRN
nausea/vomiting
Pharmacy Profile Note 0 unit 10/28/24 15:[address] 1 Unit IV 11/25/24 14:59
DIRECTED ANNALEE
Prochlorperazine Edisylate 5 mg 10/28/24 14:49
Prochlorperazine 10 Mg/2 Ml Vial IV 11/25/24 14:48
Q6HPRN PRN
nausea/vomiting
[2024-10-28 16:34] VITALS: BP 185/105
[2024-10-28] MEDS: MORPHINE SULFATE 2 MG IV ×2 (21:09→23:27)
[2024-10-28 21:27] VITALS: BP 166/103
[2024-10-28] MEDS: NSS (PRESERVATIVE FREE) 0.25 ML IV (23:28)
[2024-10-28] MEDS: ATIVAN 0.5 MG IV (23:29)
[2024-10-29] MEDS: MORPHINE SULFATE 2 MG IV ×7 (00:45→23:50)
[2024-10-29] MEDS: MORPHINE 100 IV (03:52)
[2024-10-29 07:04] VITALS: BP 159/71
--- NOTE | 2024-10-29 08:36 | CHAP ---
Note: Fr. Chew (Sunday fashion intern marketing project lead) provided [employer] [facility] [employer] as requested prior to hospice chart creation.
--- NOTE | 2024-10-29 08:54 | W.PN.HOSP.TC ---
Today's Communication/Plan
-
see bold
Assessment / Plan
Assessment / Plan
84-year-old female with a past medical history of metastatic pancreatic cancer on hospice at home, and uterine cancer, who was admitted for acute infarct of the entire MCA territory with associated left-sided paralysis and aphasia. Patient was seen
in conjunction with neurology. She was outside of the window for tPA. Patient was recently released from the hospital on 10/22/2024, and signed onto hospice for her metastatic pancreatic cancer. She was very adamant about her wishes at that time.
She did not want treatment, she did not want to be in the hospital. Due to her current clinical condition as well as her history of metastatic pancreatic cancer, in conjunction with her wishes, family decided to transition her to comfort care
measures only. She is admitted to general inpatient hospice.
A/P:
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
Metastatic pancreatic cancer to the liver, on hospice on home
History of uterine cancer status postchemotherapy
Diabetes
Essential hypertension
- Continue comfort care measures only
Physical Exam
General: Resting in bed comfortably
HEENT: Normocephalic, Atraumatic
Respiratory: Clear to Auscultation bilaterally
Cardiac: Normal S1/S2, Regular Rate and Rhythm
GI: Soft, Nontender, Nondistended, Normal Bowel Sounds
Extremities: No Clubbing, Cyanosis, or Edema
Neuro: Aphasic, left-sided hemiparesis noted
Anticipated Discharge: 24 - 48 hours
Subjective/Interval History
-
Date of Service: October 29, 2024
Patient resting comfortably.
Objective Data
-
Vital Signs:
Vital Signs
Temp Pulse Resp BP Pulse Ox
99.0 F 104 14 159/71 88
10/29/24 07:04 10/29/24 07:04 10/29/24 07:04 10/29/24 07:04 10/29/24 07:04
--- NOTE | 2024-10-29 09:33 | HOSPNOTE ---
Organic Gardening Teacher visited with 84 year old patient to conduct an Initial [employer] Assessment. Patient admitted onto [facility] Level of Care and Hospice Services with a Primary Diagnosis of Pancreatic Cancer. [employer] spoke briefly to the Nurse for updates.
Nurse reported patient is comfortable and no concerns. Nurse reported spouse just left and will return later today. [employer] entered patient's room and greeted patient. Patient asleep and non-responsive. Patient lying in the bed and appears to be resting
comfortably. Patient did not show signs of pain and/or distress. Hospital Volunteers came into patient's room and left a pamphlet for Pastoral Care. [employer] contacted patient's spouse to see how he was doing and to offer emotional support. Spouse
reported he's not doing well and needs to get some rest and will return to the hospital later today. Spouse reported he would like to talk with [employer] later today if possible. [employer] provided spouse with her contact information and encouraged spouse to
contact her at his convenience.
Spouse appears to be coping appropriately. Patient meets [facility] Level of Care for SN assessments and management of agitation that could not be managed at home and/or in an outpatient setting. Discharge planning continues.
[employer] will visit once a week to provide supportive services and to monitor for additional services while on [facility] Level of Care.
--- NOTE | 2024-10-29 10:08 | HOSPNOTE ---
Lorene was sleeping peacefully, non-responsive. She did not show signs of pain. No family was present. [employer] provided emotional and spiritual support through presence, words of comfort, Scripture reading and prayer. Placed phone call to spouse, "Nicki"Bassem, who indicated that Lorene received a notching machine operator visit yesterday. Emotional and spiritual support provided to Bassem, who is feeling tired, but planning to return to the hospital today. [employer] will continue support with a visit this weekend,
and then weekly.
--- NOTE | 2024-10-29 12:23 | CM ---
Chart reviewed and patient is on GIP, with [facility] hospice.
Plan; GIP [facility].
--- NOTE | 2024-10-29 13:35 | HOSPNOTE ---
No family present during visit. Patient is unresponsive at this point and on a morphine drip. Patient will be seen daily. Please medicate prior to any care or repositioning. Patient continues to be inpatient appropriate.
[2024-10-29] MEDS: ROBINUL 0.2 MG IV ×2 (18:20→23:51)
[2024-10-29] MEDS: ATIVAN 0.5 MG IV (20:06)
[2024-10-29] MEDS: NSS (PRESERVATIVE FREE) 0.25 ML IV (20:06)
[2024-10-29 21:57] VITALS: BP 126/81
[2024-10-30] MEDS: MORPHINE SULFATE 2 MG IV (01:06)
[2024-10-30] MEDS: MORPHINE SULFATE 4 MG IV ×5 (01:28→18:18)
[2024-10-30] MEDS: ATIVAN 0.5 MG IV ×4 (02:07→18:18)
[2024-10-30] MEDS: NSS (PRESERVATIVE FREE) 0.25 ML IV ×3 (02:07→18:19)
[2024-10-30 06:56] VITALS: BP 89/61
[2024-10-30] MEDS: ROBINUL 0.2 MG IV ×2 (07:41→18:17)
--- NOTE | 2024-10-30 08:48 | W.PN.HOSP.TC ---
Today's Communication/Plan
-
Continue comfort care measures only
Assessment / Plan
Assessment / Plan
84-year-old female with a past medical history of metastatic pancreatic cancer on hospice at home, and uterine cancer, who was admitted for acute infarct of the entire MCA territory with associated left-sided paralysis and aphasia. Patient was seen
in conjunction with neurology. She was outside of the window for tPA. Patient was recently released from the hospital on 10/22/2024, and signed onto hospice for her metastatic pancreatic cancer. She was very adamant about her wishes at that time.
She did not want treatment, she did not want to be in the hospital. Due to her current clinical condition as well as her history of metastatic pancreatic cancer, in conjunction with her wishes, family decided to transition her to comfort care
measures only. She is admitted to general inpatient hospice.
A/P:
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
Metastatic pancreatic cancer to the liver, on hospice on home
History of uterine cancer status postchemotherapy
Diabetes
Essential hypertension
- Continue comfort care measures only
Physical Exam
General: Resting in bed comfortably
HEENT: Normocephalic, Atraumatic
Respiratory: Clear to Auscultation bilaterally
Cardiac: Normal S1/S2, Regular Rate and Rhythm
GI: Soft, Nontender, Nondistended, Normal Bowel Sounds
Extremities: No Clubbing, Cyanosis, or Edema
Neuro: Aphasic, left-sided hemiparesis noted
Anticipated Discharge: 24 - 48 hours
Subjective/Interval History
-
Date of Service: October 30, 2024
Patient resting comfortably in bed.
Objective Data
-
Vital Signs:
Vital Signs
Temp Pulse Resp BP Pulse Ox
101.5 F H 128 14 89/61 94
10/30/24 06:56 10/30/24 06:56 10/30/24 06:56 10/30/24 06:56 10/30/24 06:56
I&O
10/29/24 10/30/24 10/31/24
06:59 06:59 06:59
Intake Total 0 / 0
Balance 0 / 0
[2024-10-30] MEDS: TYLENOL/FEVERALL 650 MG RECTAL (10:33)
--- NOTE | 2024-10-30 11:54 | CM ---
Chart reviewed
Patient is on GIP with [facility] hospice
Plan - cont GIP [facility]
--- NOTE | 2024-10-30 13:03 | HOSPNOTE ---
Patient was washed and repositioned. Patient is on a morphine drip step 3 for pain. Patient had a temp and was given a rectal supp of tylenol. Patient was medicated with PRN doses of ativan and morphine and appears comfortable at this time. Patient
continues to be inpatient hospice for management of pain and anxiety. Patient will be seen daily by hospice nurse. No family present at the time of my visit.
[2024-10-30] MEDS: MORPHINE 100 IV (16:49)
[2024-10-30 19:52] VITALS: BP 62/39
--- NOTE | 2024-10-30 23:57 | W.PN.DEATH ---
Pronouncement of
-
Called to see patient to pronounce.
No spontaneous heart tones or respirations noted.
Patient not responsive to verbal stimuli.
Patient is pronounced .
Time of : 23:44
Date of : 10/30/24
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
Family Notified: Yes ( at bedside)
--- NOTE | 2024-10-31 02:36 | PTCARENOTE ---
Around 2330 assessed pt and did not feel pulse or breathing was noted. [employer] notified, Anni Lanza pronouced time of at 2344. Post-morteum care done and IV pulled. Called [facility] and called [facility]. Body sent down to [facility] [place]. Pts
took home all belongings.
== END 2024-10-30 23:44 | disposition expired | DRG 951 ==
LOC: 2 NORTH 14:35
PROVIDERS: ADMITTING PHYSICIAN Family Medicine
DX: Z51.5 Encounter for palliative care (principal); I63.513 Cerebral infarction due to unspecified occlusion or stenosis of bilateral middle cerebral arteries; G81.94 Hemiplegia, unspecified affecting left nondominant side; R47.01 Aphasia; C25.9 Malignant neoplasm of pancreas, unspecified; C78.7 Secondary malignant neoplasm of liver and intrahepatic bile duct; Z92.21 Personal history of antineoplastic chemotherapy; Z85.42 Personal history of malignant neoplasm of other parts of uterus; E11.9 Type 2 diabetes mellitus without complications